=== PATIENT | male | born 1950 | race Caucasian/White ===

== ENCOUNTER 2018-03-20 16:51 | Emergency (ER) | payer OTHER ==
--- NOTE | 2018-03-20 18:22 | RAD REPORT ---
EXAM DESCRIPTION: David Single View03/20/2018 6:16 pm CLINICAL HISTORY: cough COMPARISON: none FINDINGS: The lungs appear clear of acute infiltrate. The heart is normal size IMPRESSION: No acute abnormalities displayed
[2018-03-20 18:43] LABS: Absolute Lymphocytes (CBC) 1.3 K/uL (0.7-4.9); Absolute Monocytes 0.7 K/uL (0.1-1.3); Absolute Neutrophil 4.1 K/uL (1.8-8.0); Eosinophils % 0.9 % (0-4.4); Hematocrit 39.6 % (39.6-49.0); Lymphocytes % 20.3 % (15.3-44.8); MPV 7.7 fL (7.6-11.3); Monocytes % 11.3 % (3.3-12.3); RBC Red Blood Cell Count 4.38 M/uL (4.33-5.43)
[2018-03-20 18:49] LABS: Urine Blood NEGATIVE (NEG); Urine Glucose NEGATIVE (NEG); Urine Protein NEGATIVE (NEG); Urine pH 6.5 (5.0-7.0)
[2018-03-20 19:01] LABS: Protime INR 1.03
[2018-03-20 19:02] LABS: ALT/SGPT 55 U/L (12-78); AST/SGOT 26 U/L (15-37); Albumin 3.8 g/dL (3.4-5.0); Alkaline Phosphatase 139 U/L (45-117); BUN Blood Urea Nitrogen 11 mg/dL (7-18); Bicarbonate 27 mmol/L (21-32); Bilirubin Direct < 0.1 mg/dL (0-0.2); Bilirubin Total 0.2 mg/dL (0.2-1.0); Glucose Level 119 mg/dL (74-106); Magnesium 2.5 mg/dL (1.8-2.4); NT PRO-BNP 19 pg/mL (<125); Potassium 3.8 mmol/L (3.5-5.1); Protein, Total 7.5 g/dL (6.4-8.2); Sodium Level 139 mmol/L (136-145); Troponin (Emerg Dept Use Only) < 0.02 ng/mL (0.0-0.045)
[2018-03-20] MEDS ORDERED: NA CHLORIDE 0.9% 1,000 ML ONE (19:08)
--- NOTE | 2018-03-20 19:50 | RAD REPORT ---
EXAM DESCRIPTION: CT - Chest Abdomen Pelvis W Cont - 03/20/2018 7:33 pm CLINICAL HISTORY: Chest and abdominal pain. Cough COMPARISON: MRI 2007 TECHNIQUE: Computed axial tomography of the chest, abdomen and pelvis was obtained. 100 cc Isovue-30 0 was administered intravenously. Oral contrast was not requested. This limits evaluation of bowel. All CT scans are performed using dose optimization technique as appropriate and may include automated exposure control or mA/KV adjustment according to patient size. FINDINGS: The lungs are clear No mediastinal or hilar lymphadenopathy Pericardial effusion not seen. Pleural effusion is not present Fatty liver. 21 millimeter dense lesion within the right lobe unchanged from the prior exam. Spleen, pancreas, adrenals and kidneys appear unremarkable. Small renal cysts The appendix is normal. No evidence diverticulitis. Right inguinal hernia contains fat No abnormality of the inferior vena cava noted. Tiny umbilical hernia The left ischium and left ilium are sclerotic IMPRESSION: Unremarkable CT chest Fatty liver. 21 millimeter dense lesion within the right lobe is unchanged from the prior exam. It pr obably is benign. Follow up ultrasound in 6 months recommended to reassess stability Left ilium and left ischium are sclerotic which could indicate Paget's disease or blastic metastatic disease
--- NOTE | 2018-03-20 20:16 | RAD REPORT ---
EXAM DESCRIPTION: USExtremity Venous Uni Ltd03/20/2018 7:52 pm CLINICAL HISTORY: Right leg swelling. COMPARISON: None. FINDINGS: Right common femoral, superficial femoral, popliteal and right posterior tibial veins are compressible and demonstrate augmentation. Doppler demonstrates good flow. IMPRESSION: No evidence of deep venous thrombosis involving the right lower extremity.
--- NOTE | 2018-03-20 22:04 | EDPHYS ---
Physician Documentation [facility] Name: Christopher Le Age: 67 yrs Sex: Male : 1950 Arrival Date: 03/20/2018 Time: 16:54 Bed 13 Private MD: Arjun Malik B ED Physician Darshan Lizama HPI: 03/20 19:23 This 67 yrs old Male presents to ER via Ambulatory with complaints of Feet sandhya Swelling. 19:23 The patient presents with decreased range of motion, pain. The complaints affect the sandhya lateral aspect of left calf, left calf, medial aspect of left calf and left berrios. Context: The problem was sustained at an unknown site. Onset: The symptoms/episode began/occurred 3 month(s) ago. Modifying factors: The symptoms are alleviated by nothing. the symptoms are aggravated by nothing. Associated signs and symptoms: The patient has no apparent associated signs or symptoms. Treatment prior to arrival includes: no previous treatment. Severity of symptoms: At their worst the symptoms were mild, in the emergency department the symptoms are unchanged. The patient has not experienced similar symptoms in the past. Historical: - Allergies: 17:36 No Known Allergies; aj - Home Meds: 17:36 gabapentin 600 mg oral tab twice a day [Active]; Restasis 0.05 % ophthalmic dpet 1 drop aj 2 times per day [Active]; ropinirole 2 mg oral tab 1 tab [Active]; cyclobenzaprine 10 mg Oral tab daily [Active]; hydrocodone-acetaminophen 7.5-325 mg Oral tab twice a day [Active]; duloxetine 60 mg oral cpDR 1 cap once daily [Active]; Ambien 10 mg Oral tab 1 tab once daily [Active]; meloxicam 15 mg oral tab 1 tab once daily [Active]; - PMHx: 17:36 Chronic pain; aj - PSHx: 17:36 None; aj - Immunization history:: Adult Immunizations up to date. - Social history:: Smoking status: Patient/guardian denies using tobacco. - Ebola Screening: : Patient negative for fever greater than or equal to 101.5 degrees Fahrenheit, and additional compatible Ebola Virus Disease symptoms Patient denies exposure to infectious person Patient denies travel to an Ebola-affected area in the 21 days before illness onset No symptoms or risks identified at this time. - Family history:: not pertinent. ROS: 19:23 Constitutional: Negative for fever, chills, and weight loss, Eyes: Negative for injury, sandhya pain, redness, and discharge, ENT: Negative for injury, pain, and discharge, Neck: Negative for injury, pain, and swelling, Cardiovascular: Negative for chest pain, palpitations, and edema, Respiratory: Negative for shortness of breath, cough, wheezing, and pleuritic chest pain, Abdomen/GI: Negative for abdominal pain, nausea, vomiting, diarrhea, and constipation, Back: Negative for injury and pain, : Negative for injury, bleeding, discharge, and swelling, Skin: Negative for injury, rash, and discoloration, Neuro: Negative for headache, weakness, numbness, tingling, and seizure, Psych: Negative for depression, anxiety, suicide ideation, homicidal ideation, and hallucinations, Allergy/Immunology: Negative for hives, rash, and allergies, Endocrine: Negative for neck swelling, polydipsia, polyuria, polyphagia, and marked weight changes, Hematologic/Lymphatic: Negative for swollen nodes, abnormal bleeding, and unusual bruising. 19:23 MS/extremity: Positive for swelling, tenderness, of the left leg. Exam: 19:23 Constitutional: This is a well developed, well nourished patient who is awake, alert, sandhya and in no acute distress. Head/Face: Normocephalic, atraumatic. Eyes: Pupils equal round and reactive to light, extra-ocular motions intact. Lids and lashes normal. Conjunctiva and sclera are non-icteric and not injected. Cornea within normal limits. Periorbital areas with no swelling, redness, or edema. ENT: Nares patent. No nasal discharge, no septal abnormalities noted. Tympanic membranes are normal and external auditory canals are clear. Oropharynx with no redness, swelling, or masses, exudates, or evidence of obstruction, uvula midline. Mucous membranes moist. Neck: Trachea midline, no thyromegaly or masses palpated, and no cervical lymphadenopathy. Supple, full range of motion without nuchal rigidity, or vertebral point tenderness. No Meningismus. Chest/axilla: Normal chest wall appearance and motion. Nontender with no deformity. No lesions are appreciated. Cardiovascular: Regular rate and rhythm with a normal S1 and S2. No gallops, murmurs, or rubs. Normal PMI, no JVD. No pulse deficits. Respiratory: Lungs have equal breath sounds bilaterally, clear to auscultation and percussion. No rales, rhonchi or wheezes noted. No increased work of breathing, no retractions or nasal flaring. Abdomen/GI: Soft, non-tender, with normal bowel sounds. No distension or tympany. No guarding or rebound. No evidence of tenderness throughout. Back: No spinal tenderness. No costovertebral tenderness. Full range of motion. Male : Normal genitalia with no discharge or lesions. Skin: Warm, dry with normal turgor. Normal color with no rashes, no lesions, and no evidence of cellulitis. Neuro: Awake and alert, GCS 15, oriented to person, place, time, and situation. Cranial nerves II-XII grossly intact. Motor strength 5/5 in all extremities. Sensory grossly intact. Cerebellar exam normal. Normal gait. Psych: Awake, alert, with orientation to person, place and time. Behavior, mood, and affect are within normal limits. 19:23 Musculoskeletal/extremity: Extremities: swelling, ROM: full active range of motion, full passive range of motion, Circulation is intact in all extremities. Sensation intact. Compartment Syndrome exam of affected extremity: is normal. no pain, no numbness, no tingling, no sensation deficit, no palor, no weak pulses, DVT Exam: no pain, negative Homans' sign noted on exam, no appreciated bluish discoloration, no erythema, no increased warmth, swelling, tenderness. Vital Signs: 17:36 BP 155 / 74; Pulse 92; Resp 20; Temp 97.8; Pulse Ox 96% on R/A; Weight 92.08 kg; Height aj 6 ft. 0 in. (182.88 cm); 18:51 BP 144 / 80; Pulse 70; Resp 18; Pulse Ox 96% on R/A; ph 21:15 BP 154 / 80; Pulse 73; Resp 17; Pulse Ox 100% on R/A; jb4 22:17 BP 151 / 73; Pulse 71; Resp 16; Pulse Ox 98% on R/A; jb4 17:36 Body Mass Index 27.53 (92.08 kg, 182.88 cm) MDM: 17:44 Patient medically screened. [facility] 19:26 Data reviewed: vital signs, nurses notes, lab test result(s), EKG, radiologic studies, [facility] CT scan, plain films, ultrasound. 22:02 Counseling: I had a detailed discussion with the patient and/or guardian regarding: the [facility] historical points, exam findings, and any diagnostic results supporting the discharge/admit diagnosis, lab results, radiology results, the need for outpatient follow up, to return to the emergency department if symptoms worsen or persist or if there are any questions or concerns that arise at home. ED course: CT findings were discussed with the patient along with the need for further evaluation by PCP and possible cause being cancer. Patient and understood and agrees with the plan of care. . 03/20 17:45 Order name: Basic Metabolic Panel; Complete Time: 19: [facility] 03/20 17:45 Order name: CBC with Diff; Complete Time: 19: [facility] 03/20 17:45 Order name: LFT's; Complete Time: 19: [facility] 03/20 17:45 Order name: Magnesium; Complete Time: 19: [facility] 03/20 17:45 Order name: NT PRO-BNP; Complete Time: 19: [facility] 03/20 17:45 Order name: PT-INR; Complete Time: 19: [facility] 03/20 17:45 Order name: Troponin (emerg Dept Use Only); Complete Time: 19: [facility] 03/20 17:45 Order name: XRAY Chest (1 view); Complete Time: 19:27 [facility] 03/20 17:45 Order name: EKG; Complete Time: 17:46 [facility] 03/20 17:45 Order name: Urine Culture [facility] 03/20 18:44 Order name: Urine Dipstick--Ancillary (enter results); Complete Time: 19:27 03/20 18:49 Order name: US Extremity Venous Unilateral Ltd; Complete Time: 20:19 [facility] 03/20 18:49 Order name: CT Chest, Abdomen, Pelvis - W/Contrast; Complete Time: 20:17 [facility] 03/20 17:45 Order name: Cardiac monitoring; Complete Time: 19:14 [facility] 03/20 17:45 Order name: EKG - Nurse/Tech; Complete Time: 19:14 [facility] 03/20 17:45 Order name: IV Saline Lock; Complete Time: 19:14 [facility] 03/20 17:45 Order name: Labs collected and sent; Complete Time: 19:14 [facility] 03/20 17:45 Order name: O2 Per Protocol; Complete Time: 19:14 [facility] 03/20 17:45 Order name: O2 Sat Monitoring; Complete Time: 19:14 [facility] 03/20 17:45 Order name: Urine Dipstick-Ancillary (obtain specimen); Complete Time: 19:13 [facility] Administered Medications: 19:13 Drug: NS 0.9% 1000 ml Route: IV; Rate: 75 ml/hr; Site: right antecubital; jb4 22:20 Follow up: Response: No adverse reaction; IV Status: Completed infusion jb4 Disposition: 03/20/18 22:03 Discharged to Home. Impression: Edema, unspecified. - Condition is Stable. - Discharge Instructions: Edema, Edema, [id number], Peripheral Edema. - Medication Reconciliation Form, Thank You Letter, Antibiotic Education, Prescription Opioid Use form. - Follow up: Arjun Malik; When: 2 - 3 days; Reason: Recheck today's complaints, Continuance of care, Re-evaluation by your physician. - Problem is new. - Symptoms have improved. Addendum: 03/24/2018 11:09 Co-signature as Attending Physician, Darshan Lizama MD I agree with the assessment and c hogue plan of care. Signatures: Dispatcher [employer] EDIrene Weaver, Darshan Chance RN, MD MD cha Mickail, Joel, PA PA jmm Bryson, James, RN RN jb4 Corrections: (The following items were deleted from the chart) 03/20 22:21 22:03 03/20/2018 22:03 Discharged to Home. Impression: Edema, unspecified. Condition is jb4 Stable. Discharge Instructions: Edema, Edema, [id number], Peripheral Edema. Forms are Medication Reconciliation Form, Thank You Letter, Antibiotic Education, Prescription Opioid Use. Follow up: Arjun Malik; When: 2 - 3 days; Reason: Recheck today's complaints, Continuance of care, Re-evaluation by your physician. Problem is new. Symptoms have improved. palak
--- NOTE | 2018-03-20 22:04 | ER ---
Nurse's Notes [facility] Name: Christopher Le Age: 67 yrs Sex: Male : 1950 Arrival Date: 03/20/2018 Time: 16:54 Bed 13 Private MD: Arjun Malik B Diagnosis: Edema, unspecified Presentation: 03/20 17:32 Presenting complaint: Patient states: Sent by Dr Malik for left foot swelling x 1 aj month. Had blood work and venous doppler done today. Transition of care: patient was not received from another setting of care. Onset of symptoms was February 2018. Risk Assessment: Do you want to hurt yourself or someone else? Patient reports no desire to harm self or others. Initial Sepsis Screen: Does the patient meet any 2 criteria? No. Patient's initial sepsis screen is negative. Does the patient have a suspected source of infection? No. Patient's initial sepsis screen is negative. Care prior to arrival: None. 17:32 Method Of Arrival: Ambulatory aj 17:32 Acuity: SARA 3 aj Triage Assessment: 17:36 General: Appears in no apparent distress. comfortable, Behavior is calm, cooperative, aj appropriate for age. Pain: Denies pain. Neuro: Level of Consciousness is awake, alert, obeys commands, Oriented to person, place, time, situation, Appropriate for age. Respiratory: Airway is patent Respiratory effort is even, unlabored, Respiratory pattern is regular, symmetrical. Derm: Skin is intact, is healthy with good turgor, Skin is pink, warm \T\ dry. normal. Musculoskeletal: Reports swelling to left foot. Historical: - Allergies: 17:36 No Known Allergies; aj - Home Meds: 17:36 gabapentin 600 mg oral tab twice a day [Active]; Restasis 0.05 % ophthalmic dpet 1 drop aj 2 times per day [Active]; ropinirole 2 mg oral tab 1 tab [Active]; cyclobenzaprine 10 mg Oral tab daily [Active]; hydrocodone-acetaminophen 7.5-325 mg Oral tab twice a day [Active]; duloxetine 60 mg oral cpDR 1 cap once daily [Active]; Ambien 10 mg Oral tab 1 tab once daily [Active]; meloxicam 15 mg oral tab 1 tab once daily [Active]; - PMHx: 17:36 Chronic pain; aj - PSHx: 17:36 None; aj - Immunization history:: Adult Immunizations up to date. - Social history:: Smoking status: Patient/guardian denies using tobacco. - Ebola Screening: : Patient negative for fever greater than or equal to 101.5 degrees Fahrenheit, and additional compatible Ebola Virus Disease symptoms Patient denies exposure to infectious person Patient denies travel to an Ebola-affected area in the 21 days before illness onset No symptoms or risks identified at this time. - Family history:: not pertinent. Screenin:38 Abuse screen: Denies threats or abuse. Denies injuries from another. Nutritional ph screening: No deficits noted. Tuberculosis screening: No symptoms or risk factors identified. Fall Risk None identified. Assessment: 18:37 General: Appears in no apparent distress. comfortable, slender, well groomed, Behavior ph is calm, cooperative, appropriate for age, Denies fever, feeling ill. Pain: Denies pain. Neuro: Level of Consciousness is awake, alert, obeys commands, Oriented to person, place, time, situation. Cardiovascular: Capillary refill < 3 seconds in bilateral fingers toes Patient's skin is warm and dry. Edema is 2+ to left ankle and left foot. Respiratory: Airway is patent Respiratory effort is even, unlabored, Respiratory pattern is regular, symmetrical, Breath sounds are clear bilaterally. Denies shortness of breath. GI: No signs and/or symptoms were reported involving the gastrointestinal system. Derm: Skin is intact, is healthy with good turgor, Skin is pink, warm \T\ dry. 19:10 Reassessment: Patient appears in no apparent distress at this time. Patient and/or jb4 family updated on plan of care and expected duration. Pain level reassessed. Patient is alert, oriented x 3, equal unlabored respirations, skin warm/dry/pink. Cardiovascular: Patient's skin is warm and dry. 20:20 Reassessment: PT is at CT. jb4 21:00 Reassessment: Patient appears in no apparent distress at this time. Patient and/or jb4 family updated on plan of care and expected duration. Pain level reassessed. Patient is alert, oriented x 3, equal unlabored respirations, skin warm/dry/pink. 22:17 Reassessment: Patient appears in no apparent distress at this time. Patient and/or jb4 family updated on plan of care and expected duration. Pain level reassessed. Patient is alert, oriented x 3, equal unlabored respirations, skin warm/dry/pink. Discussed D/c, F/u with pt and pt's , denies questions or concerns. Vital Signs: 17:36 BP 155 / 74; Pulse 92; Resp 20; Temp 97.8; Pulse Ox 96% on R/A; Weight 92.08 kg; Height aj 6 ft. 0 in. (182.88 cm); 18:51 BP 144 / 80; Pulse 70; Resp 18; Pulse Ox 96% on R/A; ph 21:15 BP 154 / 80; Pulse 73; Resp 17; Pulse Ox 100% on R/A; jb4 22:17 BP 151 / 73; Pulse 71; Resp 16; Pulse Ox 98% on R/A; jb4 17:36 Body Mass Index 27.53 (92.08 kg, 182.88 cm) ED Course: 16:54 Patient arrived in ED. sb2 16:54 Arjun Malik MD is Private Physician. sb2 17:33 Triage completed. aj 17:36 Arm band placed on left wrist. Patient placed in an exam room. aj 17:44 Darshan Lizama MD is Attending Physician. sandhya 17:50 Rocio Roque, BETO is Primary Nurse. ph 18:17 XRAY Chest (1 view) In Process Unspecified. EDMS 18:38 Patient has correct armband on for positive identification. Placed in gown. Bed in low ph position. Call light in reach. Side rails up X 1. Pulse ox on. NIBP on. Door closed. Warm blanket given. 18:38 Inserted saline lock: 20 gauge in left antecubital area, using aseptic technique. Blood ph collected. 18:47 EKG done, by ED staff, reviewed by Darshan Lizama MD. mh5 19:29 Radiology exam delayed due to pt in CT. sg3 19:34 CT Chest, Abdomen, Pelvis - W/Contrast In Process Unspecified. EDMS 19:34 CT completed. Patient tolerated procedure well. Patient moved back from CT. nj 19:37 Guerrero Blake PA is PHCP. jmm 19:45 Ultrasound completed. Patient tolerated well. sg3 19:52 US Extremity Venous Unilateral Ltd In Process Unspecified. EDMS 22:03 Arjun Malik MD is Referral Physician. [facility] 22:17 No provider procedures requiring assistance completed. IV discontinued, intact, jb4 bleeding controlled. Administered Medications: 19:13 Drug: NS 0.9% 1000 ml Route: IV; Rate: 75 ml/hr; Site: right antecubital; jb4 22:20 Follow up: Response: No adverse reaction; IV Status: Completed infusion jb4 Outcome: 22:03 Discharge ordered by MD. [facility] 22:17 Discharged to home ambulatory, with significant other. jb4 22:17 Condition: stable 22:17 Discharge instructions given to patient, significant other, Instructed on discharge instructions, follow up and referral plans. Demonstrated understanding of instructions, follow-up care. 22:21 Patient left the ED. jb4 Signatures: Dispatcher [employer] EDIrene Weaver, RN RN Darshan Bird MD MD cha Mickail, Joel, PA PA jmm Hall, Patricia, RN RN Joe Clark RN RN jb4 Gilberto Pillai Maria Tila Child 3 Rona Kline sb2 Corrections: (The following items were deleted from the chart) 20: 16:12 Reassessment: Patient appears in no apparent distress at this time. Patient jb4 and/or family updated on plan of care and expected duration. Pain level reassessed. Patient is alert, oriented x 3, equal unlabored respirations, skin warm/dry/pink. jb4 : 16:12 Cardiovascular: Patient's skin is warm and dry. jb4 jb4 : 16:12 Respiratory: Airway is patent Respiratory effort is even, unlabored, Respiratory jb4 pattern is regular, symmetrical, jb4
--- NOTE | 2018-03-21 08:29 | EKG ---
Test Date: 2018-03-20 Test Time: 18:40:21 Slag Wheeler: EMBER MEASUREMENT RESULTS: Intervals: Rate: 68 PA: 138 QRSD: 108 QT: 390 QTc: 414 Uledi: P: 59 PA: 138 QRS: 24 T: 50 INTERPRETIVE STATEMENTS: Normal sinus rhythm Normal ECG Compared to ECG 07/05/2015 13:37:12 Sinus bradycardia no longer present Intraventricular conduction delay no longer present Electronically Signed On 03-21-18 08:28:46 TINSEL MACHINE OPERATOR by Rey Nagy
== END 2018-03-20 22:21 | disposition home or self-care (01) ==
LOC: ER 16:51
DX: R60.9 Edema, unspecified (principal)
CPT/HCPCS: 36415; 71045; 71260; 74177; 80048; 80076; 81003; 83735; 83880; 84484; 85025; 85610; 87088; 93005; 93971; 96360; 96361; 99284; J7030; Q9967; 87086

== ENCOUNTER 2021-07-21 15:59 | Inpatient (IN) | payer OTHER ==
--- OUTSIDE RECORDS SUMMARY | 2021-07-21 16:02 | XMS REPORT | Continuity of Care Document ---
:1950 Author Organization [facility] t Address [address] [place] [address] Care Team Providers Name Role Phone Margy ESTRADA Attending Clinician Unavailable Margy ESTRADA Attending Clinician Unavailable Doctor Unassigned, Name Attending Clinician Unavailable Margy Estrada MD Attending Clinician Madelyn Malik Attending Clinician Payers Payer Name Policy Type Policy Number Effective Date Expiration Date S ource Problems Condition Condition Condition Status Onset Resolution Last Treating Co mments Source Name Details Category Date Date Treatment Clinician Date No known No known Disease Unive rs active active ity of problems problems [facility] Allergies, Adverse Reactions, Alerts Allergy Allergy Status Severity Reaction(s) Onset Inactive Treating Comm ents Source Name Type Date Date Clinician NO KNOWN Drug Active Univers ALLERGIE Class ity of S [facility] Social History Social Habit Start Date Stop Date Quantity Comments Source Exposure to Not sure [facility] SARS-CoV-2 (event) Medica l Branch Tobacco use and 2018-11-04 2018-11-04 Never used [facility] exposure 00:00:00 00:00:00 [facility] [birth year] [facility] 00:00:00 00:00:00 [facility] Smoking Status Start Date Stop Date Source Never smoker [facility] Medications Ordered Filled Start Stop Current Ordering Indication Dosage Frequency Signature Comments Components Source Medication Medication Date Date Medication? Clinician (SIG) Name Name GRACE Yes Univers 0.2-0.5 % 7-17 ity of ophthalmic 00:00: [place] drops 00 [facility] TRAVATAN Z Yes Univers 0.004 % 7-17 ity of ophthalmic 00:00: [place] drops 00 [facility] COMBIGAN Yes Univers 0.2-0.5 % 7-17 ity of ophthalmic 00:00: [place] drops 00 Medical Branch TRAVATAN Z 2019-0 Yes Univers 0.004 % 7-17 ity of ophthalmic 00:00: [place] drops 00 [facility] Branch COMBIGAN 2019-0 Yes Univers 0.2-0.5 % 7-17 ity of ophthalmic 00:00: [place] drops 00 [facility] Branch TRAVATAN Z 2019-0 Yes Univers 0.004 % 7-17 ity of ophthalmic 00:00: [place] drops 00 Medical Branch COMBIGAN 2019-0 Yes Univers 0.2-0.5 % 7-17 ity of ophthalmic 00:00: [place] drops 00 [facility] Branch TRAVATAN Z 2019-0 Yes Univers 0.004 % 7-17 ity of ophthalmic 00:00: [place] drops 00 Medical Branch COMBSANTIAGO 2019-0 Yes Univers 0.2-0.5 % 7-17 ity of ophthalmic 00:00: [place] drops 00 Medical Branch TRAVATAN Z 2019-0 Yes Univers 0.004 % 7-17 ity of ophthalmic 00:00: [place] drops 00 [facility] COMBSANTIAGO 2019-0 Yes Univers 0.2-0.5 % 7-17 ity of ophthalmic 00:00: [place] drops 00 Medical Branch TRAVATAN Z 2019-0 Yes Univers 0.004 % 7-17 ity of ophthalmic 00:00: [place] drops 00 [facility] Branch COMBSANTIAGO 2019-0 Yes Univers 0.2-0.5 % 7-17 ity of ophthalmic 00:00: [place] drops 00 Medical Branch TRAVATAN Z 2019-0 Yes Univers 0.004 % 7-17 ity of ophthalmic 00:00: [place] drops 00 [facility] COMBIGAN 2019-0 Yes Univers 0.2-0.5 % 7-17 ity of ophthalmic 00:00: [place] drops 00 Medical Branch TRAVATAN Z 2019-0 Yes Univers 0.004 % 7-17 ity of ophthalmic 00:00: [place] drops 00 [facility] Branch COMBIGAN 2019-0 Yes Univers 0.2-0.5 % 7-17 ity of ophthalmic 00:00: [place] drops 00 Medical Branch TRAVATAN Z 2019-0 Yes Univers 0.004 % 7-17 ity of ophthalmic 00:00: [place] drops 00 [facility] Branch COMBIGAN 2019-0 Yes Univers 0.2-0.5 % 7-17 ity of ophthalmic 00:00: [place] drops 00 [facility] Branch TRAVATAN Z 2019-0 Yes Univers 0.004 % 7-17 ity of ophthalmic 00:00: [place] drops 00 Medical Branch COMBIGAN 2019-0 Yes Univers 0.2-0.5 % 7-17 ity of ophthalmic 00:00: [place] drops 00 Medical Branch TRAVATAN Z 2019-0 Yes Univers 0.004 % 7-17 ity of ophthalmic 00:00: [place] drops [facility] ezetimibe 2017-0 Yes 10mg Take 10 mg Un anne 10 mg 8-29 by mouth ity of tablet 15:52: daily. [address] ezetimibe 0 Yes 10mg Take 10 mg Un anne 10 mg 8-29 by mouth ity of tablet 15:52: daily. [address] ezetimibe 0 Yes 10mg Take 10 mg Un anne 10 mg 8-29 by mouth ity of tablet 15:52: daily. [address] ezetimibe 0 Yes 10mg Take 10 mg Un anne 10 mg 8-29 by mouth ity of tablet 15:52: daily. [address] ezetimibe 0 Yes 10mg Take 10 mg Un anne 10 mg 8-29 by mouth ity of tablet 15:52: daily. [address] ezetimibe 0 Yes 10mg Take 10 mg Un anne 10 mg 8-29 by mouth ity of tablet 15:52: daily. [address] ezetimibe 0 Yes 10mg Take 10 mg Un anne 10 mg 8-29 by mouth ity of tablet 15:52: daily. [address] ezetimibe 2017-0 Yes 10mg Take 10 mg Un anne 10 mg 8-29 by mouth ity of tablet 15:52: daily. [address] ezetimibe 0 Yes 10mg Take 10 mg Un anne 10 mg 8-29 by mouth ity of tablet 15:52: daily. [address] ezetimibe 2017-0 Yes 10mg Take 10 mg Un anne 10 mg 8-29 by mouth ity of tablet 15:52: daily. [address] ezetimibe 2017-0 Yes 10mg Take 10 mg Un anne 10 mg 8-29 by mouth ity of tablet 15:52: daily. [address] rosuvastati 2017-0 Yes 5mg Take 5 mg U nivers n 5 mg 8-20 by mouth ity of tablet 00:00: daily. [place] [facility] rosuvastati 2018-0 Yes 5mg Take 5 mg U nivers n 5 mg 8-20 by mouth ity of tablet 00:00: daily. [place] [facility] rosuvastati 2018-0 Yes 5mg Take 5 mg U nivers n 5 mg 8-20 by mouth ity of tablet 00:00: daily. [place] [facility] rosuvastati 2018-0 Yes 5mg Take 5 mg U nivers n 5 mg 8-20 by mouth ity of tablet 00:00: daily. [place] [facility] rosuvastati 2018-0 Yes 5mg Take 5 mg U nivers n 5 mg 8-20 by mouth ity of tablet 00:00: daily. [place] [facility] rosuvastati 2018-0 Yes 5mg Take 5 mg U nivers n 5 mg 8-20 by mouth ity of tablet 00:00: daily. [place] [facility] rosuvastati 2018-0 Yes 5mg Take 5 mg U nivers n 5 mg 8-20 by mouth ity of tablet 00:00: daily. [place] [facility] rosuvastati 2018-0 Yes 5mg Take 5 mg U nivers n 5 mg 8-20 by mouth ity of tablet 00:00: daily. [place] [facility] rosuvastati 2018-0 Yes 5mg Take 5 mg U nivers n 5 mg 8-20 by mouth ity of tablet 00:00: daily. [place] [facility] rosuvastati 2018-0 Yes 5mg Take 5 mg U nivers n 5 mg 8-20 by mouth ity of tablet 00:00: daily. [place] [facility] rosuvastati 2018-0 Yes 5mg Take 5 mg U nivers n 5 mg 8-20 by mouth ity of tablet 00:00: daily. [address] gabapentin 2017-1 Yes Univers 600 mg 1-13 ity of tablet 00:00: [place] [facility] gabapentin 2017-1 Yes Univers 600 mg 1-13 ity of tablet 00:00: [address] gabapentin 2017-1 Yes Univers 600 mg 1-13 ity of tablet 00:00: [address] gabapentin 2017-1 Yes Univers 600 mg 1-13 ity of tablet 00:00: [address] gabapentin 2017-1 Yes Univers 600 mg 1-13 ity of tablet 00:00: [place] [facility] gabapentin 2017- Yes Univers 600 mg 1-13 ity of tablet 00:00: [address] Branch gabapentin 2017- Yes Univers 600 mg 1-13 ity of tablet 00:00: [address] Branch gabapentin 2017- Yes Univers 600 mg 1-13 ity of tablet 00:00: [address] Branch gabapentin 2017- Yes Univers 600 mg 1-13 ity of tablet 00:00: [address] gabapentin 2017- Yes Univers 600 mg 1-13 ity of tablet 00:00: [address] gabapentin 2017- Yes Univers 600 mg 1-13 ity of tablet 00:00: [address] DULoxetine 2017- Yes Univers 60 mg 1-06 ity of capsule 00:00: [address] DULoxetine 2017- Yes Univers 60 mg 1-06 ity of capsule 00:00: [address] DULoxetine 2017- Yes Univers 60 mg 1-06 ity of capsule 00:00: [address] DULoxetine 2017- Yes Univers 60 mg 1-06 ity of capsule 00:00: [address] DULoxetine 2017- Yes Univers 60 mg 1-06 ity of capsule 00:00: [address] DULoxetine 2017- Yes Univers 60 mg 1-06 ity of capsule 00:00: [address] DULoxetine 2017- Yes Univers 60 mg 1-06 ity of capsule 00:00: [address] DULoxetine 2017- Yes Univers 60 mg 1-06 ity of capsule 00:00: [address] DULoxetine 2017- Yes Univers 60 mg 1-06 ity of capsule 00:00: [address] DULoxetine 2017- Yes Univers 60 mg 1-06 ity of capsule 00:00: [address] DULoxetine 2017- Yes Univers 60 mg 1-06 ity of capsule 00:00: [place] [facility] RESTASIS 2017- Yes Univers 0.05 % 1-05 ity of ophthalmic 00:00: [place] [facility] RESTASIS 2017- Yes Univers 0.05 % 1-05 ity of ophthalmic 00:00: [place] drops Medical Branch RESTASIS 2017- Yes Univers 0.05 % 1-05 ity of ophthalmic 00:00: [place] drops 00 Medical Branch RESTASIS 2017- Yes Univers 0.05 % 1-05 ity of ophthalmic 00:00: [place] drops 00 Medical Branch RESTASIS 2017- Yes Univers 0.05 % 1-05 ity of ophthalmic 00:00: [place] drops 00 Medical Branch RESTASIS 2017- Yes Univers 0.05 % 1-05 ity of ophthalmic 00:00: [place] drops 00 Medical Branch RESTASIS 2017- Yes Univers 0.05 % 1-05 ity of ophthalmic 00:00: [place] drops 00 Medical Branch RESTASIS 2017- Yes Univers 0.05 % 1-05 ity of ophthalmic 00:00: [place] drops 00 Medical Branch RESTASIS 2017- Yes Univers 0.05 % 1-05 ity of ophthalmic 00:00: [place] drops 00 Medical Branch RESTASIS 2017- Yes Univers 0.05 % 1-05 ity of ophthalmic 00:00: [place] drops 00 Medical Branch RESTASIS 2017- Yes Univers 0.05 % 1-05 ity of ophthalmic 00:00: [place] drops 00 Medical Branch ALPHAGAN P 2017- Yes Univers 0.1 % 0-25 ity of ophthalmic 00:00: [place] drops 00 Medical Branch ALPHAGAN P 2017- Yes Univers 0.1 % 0-25 ity of ophthalmic 00:00: [place] drops 00 Medical Branch ALPHAGAN P 2017- Yes Univers 0.1 % 0-25 ity of ophthalmic 00:00: [place] drops 00 Medical Branch ALPHAGAN P 2016- Yes Univers 0.1 % 0-25 ity of ophthalmic 00:00: [place] drops 00 Medical Branch ALPHAGAN P 2017- Yes Univers 0.1 % 0-25 ity of ophthalmic 00:00: [place] drops 00 Medical Branch ALPHAGAN P 2017- Yes Univers 0.1 % 0-25 ity of ophthalmic 00:00: [place] drops 00 Medical Branch ALPHAGAN P 2016- Yes Univers 0.1 % 0-25 ity of ophthalmic 00:00: [place] drops 00 Medical Branch ALPHAGAN P 2016- Yes Univers 0.1 % 0-25 ity of ophthalmic 00:00: [place] drops 00 Medical Branch ALPHAGAN P 2016- Yes Univers 0.1 % 0-25 ity of ophthalmic 00:00: [place] drops 00 Medical Branch ALPHAGAN P 2016- Yes Univers 0.1 % 0-25 ity of ophthalmic 00:00: [place] drops 00 Medical Branch ALPHAGAN P 2016-03 Yes Univers 0.1 % 0-25 ity of ophthalmic 00:00: [place] drops Medical Branch rOPINIRole 2016-03 Yes Univers 2 mg tablet 0-22 ity of 00:00: [place] [facility] rOPINIRole 2016-03 Yes Univers 2 mg tablet 0-22 ity of 00:00: [place] [facility] rOPINIRole 2016-03 Yes Univers 2 mg tablet 0-22 ity of 00:00: Medical Branch rOPINIRole 2016-03 Yes Univers 2 mg tablet 0-22 ity of 00:00: [place] [facility] rOPINIRole 2016-03 Yes Univers 2 mg tablet 0-22 ity of 00:00: [place] [facility] rOPINIRole 2016-03 Yes Univers 2 mg tablet 0-22 ity of 00:00: [place] [facility] rOPINIRole 2016-03 Yes Univers 2 mg tablet 0-22 ity of 00:00: [place] [facility] rOPINIRole 2016-03 Yes Univers 2 mg tablet 0-22 ity of 00:00: [place] [facility] rOPINIRole 2016-03 Yes Univers 2 mg tablet 0-22 ity of 00:00: [place] [facility] rOPINIRole 2016-03 Yes Univers 2 mg tablet 0-22 ity of 00:00: [place] [facility] rOPINIRole 2016-03 Yes Univers 2 mg tablet 0-22 ity of 00:00: [place] [facility] HYDROcodone 2016-03 Yes TAKE 1 Univ ers -acetaminop 0-18 TABLET BY ity of hen 10-325 00:00: MOUTH [place] mg tablet 00 TWICE A Medical DAY Branch zolpidem 10 2016-03 Yes Univer s mg tablet 0-18 ity of 00:00: [place] [facility] HYDROcodone 2016-03 Yes TAKE 1 Univ ers -acetaminop 0-18 TABLET BY ity of hen 10-325 00:00: MOUTH [place] mg tablet 00 TWICE A Medical DAY Branch zolpidem 10 2016-03 Yes Univer s mg tablet 0-18 ity of 00:00: [place] [facility] HYDROcodone 2016-03 Yes TAKE 1 Univ ers -acetaminop 0-18 TABLET BY ity of hen 10-325 00:00: MOUTH [place] mg tablet 00 TWICE A Medical DAY Branch HYDROcodone 2016-03 Yes TAKE 1 Univ ers -acetaminop 0-18 TABLET BY ity of hen 10-325 00:00: MOUTH [place] mg tablet 00 TWICE A Medical DAY Branch zolpidem 10 2016-03 Yes Univer s mg tablet 0-18 ity of 00:00: [place] 00 Medical Branch HYDROcodone 2016-03 Yes TAKE 1 Univ ers -acetaminop 0-18 TABLET BY ity of hen 10-325 00:00: MOUTH [place] mg tablet 00 TWICE A Medical DAY Branch zolpidem 10 2016-03 Yes Univer s mg tablet 0-18 ity of 00:00: [place] 00 Medical Branch HYDROcodone 2016-03 Yes TAKE 1 Univ ers -acetaminop 0-18 TABLET BY ity of hen 10-325 00:00: MOUTH [place] mg tablet 00 TWICE A Medical DAY Branch zolpidem 10 2016-03 Yes Univer s mg tablet 0-18 ity of 00:00: [place] 00 Medical Branch zolpidem 10 2016-03 Yes Univer s mg tablet 0-18 ity of 00:00: [place] 00 Medical Branch HYDROcodone 2016-03 Yes TAKE 1 Univ ers -acetaminop 0-18 TABLET BY ity of hen 10-325 00:00: MOUTH [place] mg tablet 00 TWICE A Medical DAY Branch zolpidem 10 2016-03 Yes Univer s mg tablet 0-18 ity of 00:00: [place] 00 Medical Branch HYDROcodone 2016-03 Yes TAKE 1 Univ ers -acetaminop 0-18 TABLET BY ity of hen 10-325 00:00: MOUTH [place] mg tablet 00 TWICE A Medical DAY Branch zolpidem 10 2016-03 Yes Univer s mg tablet 0-18 ity of 00:00: [place] 00 Medical Branch HYDROcodone 2016-03 Yes TAKE 1 Univ ers -acetaminop 0-18 TABLET BY ity of hen 10-325 00:00: MOUTH [place] mg tablet 00 TWICE A Medical DAY Branch zolpidem 10 2016-03 Yes Univer s mg tablet 0-18 ity of 00:00: [place] 00 Medical Branch HYDROcodone 2016-03 Yes TAKE 1 Univ ers -acetaminop 0-18 TABLET BY ity of hen 10-325 00:00: MOUTH [place] mg tablet 00 TWICE A Medical DAY Branch zolpidem 10 2016-03 Yes Univer s mg tablet 0-18 ity of 00:00: [place] 00 Medical Branch HYDROcodone 2016-03 Yes TAKE 1 Univ ers -acetaminop 0-18 TABLET BY ity of hen 10-325 00:00: MOUTH [place] mg tablet 00 TWICE A Medical DAY Branch zolpidem 10 2016-1 Yes Univer s mg tablet 0-18 ity of 00:00: [place] [facility] cyclobenzap 2017-0 Yes Univer s rine 10 mg 9-14 ity of tablet 00:00: [place] [facility] cyclobenzap 2017-0 Yes Univer s rine 10 mg 9-14 ity of tablet 00:00: [place] [facility] cyclobenzap 2017-0 Yes Univer s rine 10 mg 9-14 ity of tablet 00:00: [place] [facility] cyclobenzap 2017-0 Yes Univer s rine 10 mg 9-14 ity of tablet 00:00: [place] [facility] cyclobenzap 2017-0 Yes Univer s rine 10 mg 9-14 ity of tablet 00:00: [place] [facility] cyclobenzap 2017-0 Yes Univer s rine 10 mg 9-14 ity of tablet 00:00: [place] [facility] cyclobenzap 2017-0 Yes Univer s rine 10 mg 9-14 ity of tablet 00:00: [place] [facility] cyclobenzap 2017-0 Yes Univer s rine 10 mg 9-14 ity of tablet 00:00: [place] [facility] cyclobenzap 2017-0 Yes Univer s rine 10 mg 9-14 ity of tablet 00:00: [place] [facility] cyclobenzap 2017-0 Yes Univer s rine 10 mg 9-14 ity of tablet 00:00: [place] [facility] cyclobenzap 2017-0 Yes Univer s rine 10 mg 9-14 ity of tablet 00:00: [place] [address] Medical Branch Vital Signs Vital Name Observation Time Observation Value Comments Source Systolic blood 2020-09-06 18:56:00 159 mm[Hg] Univer sity of pressure [facility] Diastolic blood 2020-09-06 18:56:00 77 mm[Hg] Unive rsity of pressure [facility] Heart rate 2020-09-06 18:56:00 81 /min [facility] Body temperature 2020-09-06 18:56:00 36.33 Meme Univ ersity of [facility] Respiratory rate 2020-09-06 18:56:00 18 /min Univ ersity of [facility] Body height 2020-09-06 18:56:00 180.3 cm Universi ty [facility] [place] [facility] [place] Body weight 2020-09-06 18:56:00 88.542 kg Universi ty of [facility] BMI 2020-09-06 18:56:00 27.22 kg/m2 Universi ty [facility] Systolic blood 2018-11-04 15:11:00 122 mm[Hg] Univer sity of pressure [facility] Diastolic blood 2018-11-04 15:11:00 68 mm[Hg] Unive rsity of pressure [facility] Heart rate 2018-11-04 15:11:00 79 /min Universi ty [facility] Respiratory rate 2018-11-04 15:11:00 19 /min [facility] height 2018-11-04 15:11:00 182.9 cm Universi ty [facility] Body weight 2018-11-04 15:11:00 87.227 kg Universi ty [facility] BMI 2018-11-04 15:11:00 26.08 kg/m2 Universi ty [facility] Oxygen saturation in 2018-11-04 15:11:00 97 /min [facility] Arterial blood by [facility] Pulse oximetry Branch Procedures Procedure Date / Time Performing Clinician Source Performed DME/SUPPLY JUSTIFICATION 2020-11-02 05:01:00 Doctor Unassigned, No [facility] CONSENT/REFUSAL FOR 2020-09-06 18:46:22 Doctor Unassigned, No [facility] DIAGNOSIS AND TREATMENT [facility] ASSIGNMENT OF BENEFITS 2020-09-06 18:46:06 Doctor Unassigned, No [facility] EXTERNAL PROVIDER - ADC 2020-06-13 05:01:00 Doctor Unassigned, N o [facility] REFERRAL [facility] DME/SUPPLY JUSTIFICATION 2019-08-04 05:01:00 Doctor Unassigned, No [facility] DME/SUPPLY JUSTIFICATION 2018-11-04 05:01:00 Doctor Unassigned, No [facility] Encounters Start End Encounter Admission Attending Care Care Encounter Source Date/Time Date/Time Type Type Clinicians Facility Department ID 2021-09-12 2021-09-12 Outpatient R GISSEL ESTRADA [facility] [id number] Univers 10:30:00 10:30:00 GISSEL ESTRADA [id number] ity of [facility] 2020-11-02 2020-11-02 Orders Doctor EARL [id number] Univers 00:00:00 00:00:00 Only Unassigned, MYRIAM [id number] ity of [place] [facility] [id number] Brian as [phone] [address] 2020-09-06 2020-09-06 [facility] [id number] Univers 13:45:55 14:15:55 Visit Gissel Parks [id number] [place]y [id number] [phone] [place] dic[address] 2020-09-06 2020-09-06 Outpatient R GISSEL ESTRADA [facility] [id number] Univers 13:30:00 13:30:00 GISSEL ESTRADA [id number] ity of [facility] 2020-09-06 2020-09-06 Outpatient R GISSEL ESTRADA [facility] [id number] Univers 13:30:00 13:30:00 GISSEL ESTRADA ity of [facility] 2020-09-06 2020-09-06 Orders Doctor EARL [id number] Univers 00:00:00 00:00:00 Only UnassignedMYRIAM [id number] ity of [place] [facility] [id number] Brian as [phone] [facility] 009 Branch 2020-07-25 2020-07-25 Letter EARL Malik [id number] Univers 00:00:00 00:00:00 (Out) Arjun MIGUEL [id number] i ty of HOSPITAL [id number] Brian as [id number] [facility] 043 Branch 2020-06-13 2020-06-13 Orders Doctor EARL [id number] Univers 00:00:00 00:00:00 Only Unassigned, MYRIAM [id number] ity of [place] [facility] [id number] Brian as [phone] [address] 2019-11-17 2019-11-17 Outpatient R NATALIEABDOULBRIGETTE [facility] [id number] Univers 09:00:00 09:00:00 GISSEL ESTRADA 2007 ity [facility] 2019-11-17 2019-11-17 Outpatient R ABDOUL ESTRADAOKMichael [facility] [id number] Univers 09:00:00 09:00:00 ABDOUL ESTRADAOKMichael ity [facility] 2019-11-10 2019-11-10 Outpatient R ABDOUL ESTRADAOKMichael [facility] [id number] Univers 10:00:00 10:00:00 NATALIE ABDOULOKMichael itgee [facility] 2019-08-04 2019-08-04 Orders Doctor EARL [id number] Univers 00:00:00 00:00:00 Only Unassigned, MYRIAM [id number] ity of [place] [facility] [id number] Brian as [phone] [address] 2018-11-04 2018-11-04 Office Natalie [facility] [id number] [facility] 10:02:36 10:26:50 Visit Gissel Parks [id number] [id number] [phone] [place] dical [address] 2018-11-04 2018-11-04 Orders Doctor EARL [id number] Univers 00:00:00 00:00:00 Only Unassigned, MYRIAM [id number] ity of [place] [facility] [id number] Brian as [phone] [address] Results This patient has no known results.
[2021-07-21] MEDS ORDERED: ACETAMINOPHEN 500 MG TAB ONE (16:49)
[2021-07-21] MEDS ORDERED: VANCOMYCIN 1 GM/VIAL ONE (16:49)
[2021-07-21] MEDS ORDERED: NA CHLORIDE 0.9% 500 ML ONE (16:50)
[2021-07-21] MEDS ORDERED: CEFEPIME 1 GM/VIAL ONE (16:50)
[2021-07-21] MEDS ORDERED: NA CHLORIDE 0.9% 100 ML IV ONE (16:50)
[2021-07-21] MEDS ORDERED: NA CHLORIDE 0.9% 2,000 ML ONE (16:50)
[2021-07-21] MEDS ORDERED: NA CHLORIDE 0.9% 250 ML ONE (16:50)
[2021-07-21 16:51] LABS: Absolute Lymphocytes (CBC) 0.6 K/uL (0.7-4.9); Hematocrit 34.2 % (39.6-49.0); Lymphocytes % 4.4 % (15.3-44.8); MPV 7.5 fL (7.6-11.3); RBC Red Blood Cell Count 3.85 M/uL (4.33-5.43)
[2021-07-21 16:55] LABS: Protime INR 1.09
--- NOTE | 2021-07-21 17:07 | RAD REPORT ---
EXAM DESCRIPTION: CT - Head Brain Wo Cont - 07/21/2021 4:52 pm CLINICAL HISTORY: Mental status change, unknown cause COMPARISON: No comparisons TECHNIQUE: Axial 5 mm thick images of the head were obtained without IV contrast. All CT scans are performed using dose optimization technique as appropriate and may include automated exposure control or mA/KV adjustment according to patient size. FINDINGS: No intracranial hemorrhage, mass, edema or shift of mid-line structures. No cortical based acute infarction. No cortical edema or sulcal effacement. No abnormal extra-axial fluid collections. Ventricles are normal. No significant atrophy or chronic ischemic change identifiable. Mastoid air cells and visualized portions of the paranasal sinuses are clear. No acute bony findings. IMPRESSION: Negative non-contrast CT head examination for acute or significant finding.
[2021-07-21 17:12] LABS: ALT/SGPT 43 U/L (12-78); AST/SGOT 26 U/L (15-37); Albumin 3.8 g/dL (3.4-5.0); Alkaline Phosphatase 156 U/L (45-117); BUN Blood Urea Nitrogen 13 mg/dL (7-18); Bicarbonate 27 mmol/L (21-32); Bilirubin Direct 0.1 mg/dL (0-0.2); Bilirubin Total 0.3 mg/dL (0.2-1.0); Glucose Level 112 mg/dL (74-106); Magnesium 1.9 mg/dL (1.8-2.4); NT PRO-BNP 54 pg/mL (<125); Potassium 3.9 mmol/L (3.5-5.1); Protein, Total 7.7 g/dL (6.4-8.2); Sodium Level 137 mmol/L (136-145); Troponin High Sensitivity 4.8 pg/mL (<58.9)
[2021-07-21 17:28] LABS: Blood Morphology Comment NOT SEEN (NOT SEEN); Platelet Estimate INCR; White Blood Cell Scan OK (OK)
[2021-07-21 17:39] LABS: SARS-COV-2 RT PCR NEGATIVE (NEGATIVE)
--- NOTE | 2021-07-21 17:39 | RAD REPORT ---
EXAM DESCRIPTION: US - Extrem Venous W Compress Olvin - 07/21/2021 5:32 pm CLINICAL HISTORY: SWELLING COMPARISON: None. TECHNIQUE: Real-time sonographic evaluation of the bilateral lower extremity common femoral, superfi cial femoral, popliteal and posterior tibial veins was performed. FINDINGS: Normal compressibility, flow augmentation, phasic flow and spontaneous flow are identified in the left and right lower extremity common femoral, superficial femoral, popliteal and posterior t ibial veins. No intraluminal filling defects seen. IMPRESSION: No DVT in either lower extremity.
--- NOTE | 2021-07-21 17:40 | RAD REPORT ---
EXAM DESCRIPTION: RAD - Chest Single View - 07/21/2021 5:22 pm CLINICAL HISTORY: FEVER COMPARISON: Two view chest June 2020 TECHNIQUE: AP portable chest image was obtained 07/21/2021 5:22 pm . FINDINGS: No focal mass consolidation. Interstitial markings are prominent but not felt be substanti ally different when adjusting for differences in positioning and technique. No significant failure or volume overload suspected. Heart and vasculature are normal. No measurable pleural effusion and no pneumothorax. No acute bony abnormality seen. No acute aortic findings suspected. IMPRESSION: No acute cardiopulmonary process.
[2021-07-21 17:54] LABS: Urine Blood 2+ (Negative); Urine Glucose Negative (Negative); Urine Protein Negative (Negative); Urine Specific Gravity 1.015 (1.005-1.030)
[2021-07-21 18:11] LABS: Urine Bacteria <20 /HPF (NONE SEEN)
--- NOTE | 2021-07-21 18:20 | EDPHYS ---
Physician Documentation [facility] Name: Christopher Le Age: 70 yrs Sex: Male : 1950 Arrival Date: 07/21/2021 Time: 15:59 Bed 8 Private MD: Arjun Malik B ED Physician David Weaver HPI: 07/21 16:35 This 70 yrs old Male presents to ER via Ambulatory with complaints of Fever, Altered cp Mental Status. 16:35 The patient reports fever, with an emergency department temperature of 101 degrees cp Fahrenheit. 16:35 The patient presents with confusion. cp 16:35 Onset: The symptoms/episode began/occurred today, patient's last normal was yesterday, cp seemed to appear confused upon awakening this morning but noticeable confusion this afternoon. Possible causes: unknown. Associated signs and symptoms: Pertinent positives: fever, Pertinent negatives: abdominal pain, chest pain, combativeness, diarrhea, headache, vomiting, weakness. Current symptoms: In the emergency department the patient's symptoms are unchanged from the initial presentation, despite home interventions. Historical: - Allergies: 16:09 No Known Allergies; ab2 - Home Meds: 16:24 ezetimibe 10 mg oral tab 1 tab once daily [Active]; buprenorphine-naloxone 8-2 mg jl7 sublingual film 1 film BID [Active]; ropinirole 2 mg Oral tab 1 tab [Active]; rosuvastatin 5 mg oral cpSP [Active]; gabapentin 600 mg Oral tab twice a day [Active]; duloxetine 60 mg Oral cpDR 1 cap once daily [Active]; olmesartan 40 mg oral tab 1 tab once daily [Active]; - PMHx: 16:09 Chronic pain; Hypertensive disorder; ab2 - Immunization history:: Adult Immunizations up to date. - Social history:: Smoking status: Patient denies any tobacco usage or history of. ROS: 16:40 Constitutional: Positive for fever, Negative for poor PO intake. cp 16:40 Respiratory: Negative for cough, shortness of breath, wheezing. cp 16:40 Eyes: Negative for injury, pain, redness, and discharge. cp 16:40 ENT: Negative for drainage from ear(s), ear pain, sore throat, difficulty swallowing, difficulty handling secretions. 16:40 Cardiovascular: Negative for chest pain, edema, palpitations. 16:40 Abdomen/GI: Negative for abdominal pain, nausea, vomiting, and diarrhea. 16:40 Skin: Negative for rash. 16:40 Neuro: Positive for altered mental status, Negative for dizziness, headache, weakness. 16:40 Back: Negative for pain at rest, pain with movement. cp 16:40 : Negative for urinary symptoms. 16:40 All other systems are negative. Exam: 16:45 Constitutional: The patient appears in no acute distress, alert, awake, cp non-diaphoretic, non-toxic, well developed, well nourished. 16:45 Head/Face: Normocephalic, atraumatic. cp 16:45 Eyes: Periorbital structures: appear normal, Pupils: equal, round, and reactive to cp light and accomodation, Extraocular movements: intact throughout, Conjunctiva: normal, no exudate, no injection, Sclera: no appreciated abnormality, Lids and lashes: appear normal, bilaterally. 16:45 ENT: External ear(s): are unremarkable, Ear canal(s): are normal, clear, TM's: dullness, bilaterally, Nose: is normal, Mouth: Lips: moist, Oral mucosa: pink and intact, moist, Posterior pharynx: Airway: no evidence of obstruction, patent, Tonsils: no enlargement, no erythema, no exudate, swelling, is not appreciated, erythema, is not appreciated, exudate, is not appreciated. 16:45 Neck: ROM/movement: is normal, is supple, without pain, no range of motions cp limitations, no meningismus, Lymph nodes: no appreciated lymphadenopathy. 16:45 Chest/axilla: Inspection: normal, Palpation: is normal, no crepitus, no tenderness. 16:45 Cardiovascular: Rate: normal, Rhythm: regular, Edema: is not appreciated, JVD: is not appreciated. 16:45 Respiratory: the patient does not display signs of respiratory distress, Respirations: normal, no use of accessory muscles, no retractions, labored breathing, is not present, Breath sounds: are clear throughout, no decreased breath sounds, no stridor, no wheezing. 16:45 Abdomen/GI: Inspection: abdomen appears normal, Bowel sounds: active, all quadrants, Palpation: abdomen is soft and non-tender, in all quadrants. 16:45 Back: pain, is absent, ROM is normal. 16:45 Skin: Appearance: normal except for affected area, left lower leg warm to touch with very mild general erythema and mild swelling. 16:45 Neuro: Orientation: to person, place \\T\\ time. Mentation: able to follow commands, slow to respond, Motor: moves all fours, strength is normal, Sensation: is normal. 17:08 ECG was reviewed by the Attending Physician. Vital Signs: 16:06 BP 147 / 63; Pulse 92; Resp 17; Temp 101(O); Pulse Ox 99% on R/A; Weight 85.73 kg; ab2 Height 5 ft. 11 in. (180.34 cm); Pain 0/10; 17:30 BP 145 / 73; Pulse 85; Resp 18; Pulse Ox 97% on R/A; jb4 19:15 BP 123 / 57; Pulse 79; Resp 13 S; Temp 99.6(O); Pulse Ox 98% on R/A; Pain 3/10; jb4 16:06 Body Mass Index 26.36 (85.73 kg, 180.34 cm) ab2 NIH Stroke Scale Scores: 16:10 NIHSS Score: 0 ab2 MDM: 16:25 Patient medically screened. cp 17:50 Data reviewed: vital signs, nurses notes, lab test result(s), EKG, radiologic studies, cp CT scan, plain films. 17:50 Differential Diagnosis: CVA, electrolyte abnormality, meningitis, pneumonia, sepsis, cp UTI, volume depletion. Test interpretation: by ED physician or midlevel provider: ECG, plain radiologic studies. 18:15 Physician consultation: Andrey Obrien was called at 18:15, was contacted at 18:15, regarding admission, to the telemetry unit. patient's condition, and will see patient in ED, shortly. 07/21 16:29 Order name: Basic Metabolic Panel; Complete Time: 17:38 cp 07/21 17:38 Interpretation: Normal except: GLUC 112. 07/21 16:29 Order name: CBC with Diff; Complete Time: 17:38 cp 07/21 17:39 Interpretation: Normal except: WBC 13.3; RBC 3.85; HGB 11.3; HCT 34.2; MPV 7.5; HILL% cp 87.1; LYM% 4.4; NEUT A 11.6; LYMA 0.6. 07/21 16:29 Order name: LFT's; Complete Time: 17:38 cp 07/21 17:39 Interpretation: Normal except: ALK 156; GLOB 3.9; A/G 1.0. cp 07/21 16:29 Order name: Magnesium; Complete Time: 17:38 cp 07/21 17:39 Interpretation: MG 1.9; Reviewed. 07/21 16:29 Order name: NT PRO-BNP; Complete Time: 17:38 cp 07/21 16:29 Order name: PT-INR; Complete Time: 17:38 cp 07/21 16:29 Order name: Troponin HS; Complete Time: 17:38 cp 07/21 17:39 Interpretation: Reviewed. 07/21 16:29 Order name: Urine Microscopic Only; Complete Time: 18:19 cp 07/21 16:29 Order name: Blood Culture Adult (2) 07/21 16:29 Order name: Procalcitonin; Complete Time: 17:38 cp 07/21 16:29 Order name: Lactate; Complete Time: 17:38 cp 07/21 17:40 Interpretation: Reviewed. 07/21 16:29 Order name: COVID-19/FLU A+B (Document "Date of Onset" if Symptomatic); Complete Time: cp 17:41 07/21 16:55 Order name: CBC Smear Scan; Complete Time: 17:38 EDMS 07/21 17:54 Order name: Urine Dipstick-Ancillary; Complete Time: 18:01 EDMS 07/21 16:29 Order name: XRAY Chest (1 view); Complete Time: 17:41 cp 07/21 17:41 Interpretation: Report review. 07/21 16:29 Order name: EKG; Complete Time: 16:30 cp 07/21 16:29 Order name: Cardiac monitoring; Complete Time: 17:27 cp 07/21 16:29 Order name: EKG - Nurse/Tech; Complete Time: 17:27 cp 07/21 16:29 Order name: IV Saline Lock; Complete Time: 16:42 cp 07/21 16:29 Order name: Labs collected and sent; Complete Time: 16:42 cp 07/21 16:29 Order name: O2 Per Protocol; Complete Time: 16:42 cp 07/21 16:29 Order name: CT Head Brain wo Cont; Complete Time: 17:38 cp 07/21 17:40 Interpretation: Report reviewed. cp 07/21 16:29 Order name: US Extremity Venous W Compression Olvin; Complete Time: 17:41 cp 07/21 17:41 Interpretation: Report reviewed. cp 07/21 18:11 Order name: Diet Regular; Complete Time: 18:11 cp 07/21 18:13 Order name: Urine Culture EDMS 07/21 16:29 Order name: O2 Sat Monitoring; Complete Time: 16:42 cp 07/21 16:29 Order name: Urine Dipstick-Ancillary (obtain specimen); Complete Time: 18:09 cp EC:08 Rate is 83 beats/min. Rhythm is regular. [place] interval is normal. QRS interval is cp prolonged at 102 msec. QT interval is normal. T waves are Inverted in leads aVL, aVR. Interpreted by me. Reviewed by me. Administered Medications: 17:00 Drug: NS 0.9% (30 ml/kg) 30 ml/kg Route: IV; Rate: bolus; Site: right antecubital; [facility] 17:00 Drug: vancoMYCIN 1 grams Route: IVPB; Infused Over: 2 hrs; Site: right antecubital; 4 17:00 Drug: Cefepime 1 grams Route: IVPB; Rate: 200 ml/hr; Infused Over: 30 mins; Site: left jb4 antecubital; 17:41 Follow up: Response: No adverse reaction; IV Intake: 100ml [facility] 17:00 Drug: Tylenol 1000 mg Route: PO; jb4 20:52 Drug: Flomax (tamsulosin) 0.4 mg Route: PO; ag7 Disposition: 07/22 07:23 Co-signature as Attending Physician, David Weaver MD I agree with the assessment and kdr plan of care. Disposition Summary: 07/21/21 18:19 Hospitalization Ordered Hospitalization Status: Inpatient Admission cp Provider: Elmer Ribeiro cp Location: Telemetry/MedSurg (Inpatient) cp Condition: Stable cp Problem: new cp Symptoms: have improved cp Bed/Room Type: Standard cp Room Assignment: 207(07/21/21 20:30) cg Diagnosis - Altered mental status, unspecified cp - UTI/ Urinary tract infection, site not specified cp - Cellulitis of left lower limb cp Forms: - Medication Reconciliation Form cp - SBAR form cp NIH Stroke Scale - NIH Stroke Score Date: 07/21/2021 Time: 16:10 Total Score = 0 1a. Level of Consciousness (LOC) - 0(Alert) 1b. Level of Consciousness (LOC) (Month \\T\\ Age) - 0(Both) 1c. LOC Commands (Open \\T\\ Closes Eyes/Retail Reset Merchandiser) - 0(Both) 2. Best Gaze (Lateral Gaze Paresis) - 0(Normal) 3. Visual Field Loss - 0(No visual loss) 4. Facial Palsy - 0(Normal) 5a. Left Arm: Motor (10-second hold) - 0(No drift) 5b. Right Arm: Motor (10-second hold) - 0(No drift) 6a. Left Leg: Motor (5-second hold - always test supine) - 0(No drift) 6b. Right Leg: Motor (5-second hold - always test supine) - 0(No drift) 7. Limb Ataxia (finger/nose \\T\\ heel/berrios - test with eyes open) - 0(Absent) 8. Sensory Loss (pinprick arms/legs/face) - 0(Normal) 9. Best Language: Aphasia (description/naming/reading) - 0(No aphasia) 10. Dysarthria (speech clarity - read or repeat words) - 0(Normal) 11. Extinction and Inattention (visual/tactile/auditory/spatial/personal) - 0(No abnormality) Initials: ab2 Signatures: Dispatcher [employer] EDMS David Weaver MD MD kdr Andrey Obrien, CAR REPAIRER APPRENTICE-C CAR REPAIRER APPRENTICE-Cla1 Darshan Acharya PA PA cp Yulissa Winslow, RN RN cg Joe Briseno, RN RN jb4 Teri Guallpa RN RN jl7 Kev Samuels ab2 Cee Dos Santos, BETO RN ag7 Corrections: (The following items were deleted from the chart) 07/21 20:30 18:19 cp cg
--- NOTE | 2021-07-21 18:20 | ER ---
Nurse's Notes [facility] Name: Christopher Le Age: 70 yrs Sex: Male : 1950 Arrival Date: 07/21/2021 Time: 15:59 Bed 8 Private MD: Arjun Malik B Diagnosis: Altered mental status, unspecified;UTI/ Urinary tract infection, site not specified;Cellulitis of left lower limb Presentation: 07/21 16:06 Chief complaint: Patient states: "He has a fever and had some confusion at home. He ab2 said he didn't know what day it was or where he was this morning." Pt c/o fever, chills and weakness. Pt alert and oriented x4 on arrival to ED an answered all questions appropriately. Coronavirus screen: Vaccine status: Patient reports receiving the 2nd dose of the covid vaccine. Client denies travel out of the [place] in the last 14 days. Ebola Screen: Patient negative for fever greater than or equal to 101.5 degrees Fahrenheit, and additional compatible Ebola Virus Disease symptoms Patient denies exposure to infectious person. Patient denies travel to an Ebola-affected area in the 21 days before illness onset. No symptoms or risks identified at this time. Initial Sepsis Screen: Does the patient meet any 2 criteria? Temp <36.0*C (96.8*F)) or > 38.3*C (100.9*F). HR > 90 bpm. Initial Sepsis Screen: Does the patient have a suspected source of infection? No. Patient's initial sepsis screen is negative. Risk Assessment: Do you want to hurt yourself or someone else? Patient reports no desire to harm self or others. Onset of symptoms is unknown. 16:06 Method Of Arrival: Ambulatory ab2 16:06 Acuity: SARA 3 ab2 Triage Assessment: 16:10 General: Appears in no apparent distress. comfortable, Behavior is calm, cooperative, ab2 appropriate for age. Pain: Denies pain. EENT: No deficits noted. No signs and/or symptoms were reported regarding the EENT system. Neuro: Level of Consciousness is awake, alert, obeys commands, Oriented to person, place, time, situation, Appropriate for age Dried Fruit Washer are equal bilaterally Moves all extremities. Gait is steady, Speech is normal, Facial symmetry appears normal, Intact. Cardiovascular: Denies chest pain, shortness of breath, Patient's skin is warm and dry. Respiratory: Airway is patent Respiratory effort is even, unlabored, Respiratory pattern is regular, symmetrical. GI: No deficits noted. No signs and/or symptoms were reported involving the gastrointestinal system. : No deficits noted. No signs and/or symptoms were reported regarding the genitourinary system. Derm: Skin Skin temperature is warm. Musculoskeletal: No deficits noted. No signs and/or symptoms reported regarding the musculoskeletal system. Historical: - Allergies: 16:09 No Known Allergies; ab2 - Home Meds: 16:24 ezetimibe 10 mg oral tab 1 tab once daily [Active]; buprenorphine-naloxone 8-2 mg jl7 sublingual film 1 film BID [Active]; ropinirole 2 mg Oral tab 1 tab [Active]; rosuvastatin 5 mg oral cpSP [Active]; gabapentin 600 mg Oral tab twice a day [Active]; duloxetine 60 mg Oral cpDR 1 cap once daily [Active]; olmesartan 40 mg oral tab 1 tab once daily [Active]; - PMHx: 16:09 Chronic pain; Hypertensive disorder; ab2 - Immunization history:: Adult Immunizations up to date. - Social history:: Smoking status: Patient denies any tobacco usage or history of. Screenin:07 Abuse screen: Denies threats or abuse. Nutritional screening: No deficits noted. ag7 Tuberculosis screening: No symptoms or risk factors identified. Fall Risk No fall in past 12 months (0 pts). Secondary diagnosis (15 points) HTN. IV access (20 points). Ambulatory Aid- None/Bed Rest/Nurse Assist (0 pts). Gait- Normal/Bed Rest/Wheelchair (0 pts) Mental Status- Oriented to own ability (0 pts). Total Dasilva Fall Scale indicates Low Risk Score (25-44 pts). Fall prevention measures have been instituted. Side Rails Up X 2 As available Patient and Family Educated on Fall Prevention Program and strategies. Assessment: 16:20 General: Appears in no apparent distress. comfortable, Behavior is calm, cooperative, jb4 appropriate for age. Pain: Denies pain. Neuro: Level of Consciousness is awake, alert, obeys commands, Oriented to person, place, time, situation. Cardiovascular: Patient's skin is warm and dry. Respiratory: Airway is patent Respiratory effort is even, unlabored, Respiratory pattern is regular, symmetrical. GI: No signs and/or symptoms were reported involving the gastrointestinal system. : No signs and/or symptoms were reported regarding the genitourinary system. EENT: No signs and/or symptoms were reported regarding the EENT system. Derm: Skin is intact, Skin is pink, warm \\T\\ dry. Musculoskeletal: Circulation, motion, and sensation intact. Range of motion: intact in all extremities. 17:30 Reassessment: Patient appears in no apparent distress at this time. Patient and/or jb4 family updated on plan of care and expected duration. Pain level reassessed. Patient is alert, oriented x 3, equal unlabored respirations, skin warm/dry/pink. 19:15 Reassessment: Patient and/or family updated on plan of care and expected duration. Pain jb4 level reassessed. Patient is alert, oriented x 3, equal unlabored respirations, skin warm/dry/pink. c/o headache, pounding 3/10, constant, lights off Patient states feeling better. Patient states symptoms have improved. 20:15 Reassessment: No changes from previously documented assessment. Patient and/or family ag7 updated on plan of care and expected duration. Pain level reassessed. Patient is alert, oriented x 3, equal unlabored respirations, skin warm/dry/pink. Patient denies pain at this time. 21:15 Reassessment: Patient and/or family updated on plan of care and expected duration. Pain ag7 level reassessed. Patient is alert, oriented x 3, equal unlabored respirations, skin warm/dry/pink. Patient denies pain at this time. Vital Signs: 16:06 BP 147 / 63; Pulse 92; Resp 17; Temp 101(O); Pulse Ox 99% on R/A; Weight 85.73 kg; ab2 Height 5 ft. 11 in. (180.34 cm); Pain 0/10; 17:30 BP 145 / 73; Pulse 85; Resp 18; Pulse Ox 97% on R/A; jb4 19:15 BP 123 / 57; Pulse 79; Resp 13 S; Temp 99.6(O); Pulse Ox 98% on R/A; Pain 3/10; jb4 16:06 Body Mass Index 26.36 (85.73 kg, 180.34 cm) ab2 NIH Stroke Scale Scores: 16:10 NIHSS Score: 0 ab2 ED Course: 15:59 Patient arrived in ED. as 15:59 Arjun Malik MD is Private Physician. as 16:05 [facility]. cp 16:05 David Weaver MD is Attending Physician. cp 16:08 Triage completed. ab2 16:11 Arm band placed on right wrist. ab2 16:13 Joe Briseno, BETO is Primary Nurse. jb4 16:36 Inserted saline lock: 18 gauge in right antecubital area, using aseptic technique. jb4 Blood collected. 16:36 Initial lab(s) drawn, by me, sent to lab. First set of blood cultures drawn by me. jb4 Second set of blood cultures drawn by ED staff. Inserted saline lock: 20 gauge in left antecubital area, using aseptic technique. Blood collected. 16:54 CT Head Brain wo Cont In Process Unspecified. EDMS 17:24 XRAY Chest (1 view) In Process Unspecified. EDMS 17:33 US Extremity Venous W Compression Olvin In Process Unspecified. EDMS 18:07 EKG done, by ED staff, reviewed by Darshan RECIO. mb7 18:09 Urine Microscopic Only Sent. mb7 18:18 Elmer Ribeiro MD is Hospitalizing Provider. cp 22:07 Patient has correct armband on for positive identification. Bed in low position. Call ag7 light in reach. Side rails up X 1. 22:08 No provider procedures requiring assistance completed. Patient admitted, IV remains in ag7 place. Administered Medications: 17:00 Drug: NS 0.9% (30 ml/kg) 30 ml/kg Route: IV; Rate: bolus; Site: right antecubital; jb4 17:00 Drug: vancoMYCIN 1 grams Route: IVPB; Infused Over: 2 hrs; Site: right antecubital; jb4 17:00 Drug: Cefepime 1 grams Route: IVPB; Rate: 200 ml/hr; Infused Over: 30 mins; Site: left jb4 antecubital; 17:41 Follow up: Response: No adverse reaction; IV Intake: 100ml jb4 17:00 Drug: Tylenol 1000 mg Route: PO; jb4 20:52 Drug: Flomax (tamsulosin) 0.4 mg Route: PO; ag7 Intake: 17:41 IV: 100ml; Total: 100ml. jb4 Outcome: 18:19 Decision to Hospitalize by Provider. cp 21:39 Admitted to Med/surg Report called to Reprot given to Marisol. tw5 22:08 Admitted to ag7 22:08 Condition: stable 22:08 Patient left the ED. ag7 NIH Stroke Scale - NIH Stroke Score Date: 07/21/2021 Time: 16:10 Total Score = 0 1a. Level of Consciousness (LOC) - 0(Alert) 1b. Level of Consciousness (LOC) (Month \\T\\ Age) - 0(Both) 1c. LOC Commands (Open \\T\\ Closes Eyes/Smooth Plater) - 0(Both) 2. Best Gaze (Lateral Gaze Paresis) - 0(Normal) 3. Visual Field Loss - 0(No visual loss) 4. Facial Palsy - 0(Normal) 5a. Left Arm: Motor (10-second hold) - 0(No drift) 5b. Right Arm: Motor (10-second hold) - 0(No drift) 6a. Left Leg: Motor (5-second hold - always test supine) - 0(No drift) 6b. Right Leg: Motor (5-second hold - always test supine) - 0(No drift) 7. Limb Ataxia (finger/nose \\T\\ heel/berrios - test with eyes open) - 0(Absent) 8. Sensory Loss (pinprick arms/legs/face) - 0(Normal) 9. Best Language: Aphasia (description/naming/reading) - 0(No aphasia) 10. Dysarthria (speech clarity - read or repeat words) - 0(Normal) 11. Extinction and Inattention (visual/tactile/auditory/spatial/personal) - 0(No abnormality) Initials: ab2 Signatures: Dispatcher [employer] EDBekah Moura Corey, PA PA cp Bryson, James, RN RN jb4 Teri Guallpa RN RN jl7 Julia Pollock tw5 Rosalina Anne mb7 Kev Samuels ab2 Cee Dos Santos, BETO RN ag7
--- NOTE | 2021-07-21 19:43 | P.HP ---
Certification for Inpatient Patient admitted to: Inpatient With expected LOS: >2 Midnights Patient will require the following post-hospital care: None Practitioner: I am a practitioner with admitting privileges, knowledge of patient current condition, hospital course, and medical plan of care. Services: Services provided to patient in accordance with Admission requirements found in Title 42 Section 412.3 of the Code of Federal Regulations Patient History Date of Service: 07/21/21 Reason for admission: Sepsis History of Present Illness: 70-year-old male with history of hypertension, chronic pain, arthritis, hyperlipidemia, RLS, SAMEERA presents emergency department for confusion, fever. His at bedside reports that throughout the day she noticed he was confused unable to answer some basic questions that reason brought to the emergency department for evaluation, patient was found to be febrile upon arrival with temperature of 101. Code sepsis was called, blood and urine cultures were obtained further evaluation was completed in the ER which revealed leukocytosis, questionable urinary tract infection on exam patient with possible cellulitis of left lower extremity. His mental status has improved greatly is back at his baseline currently after IV fluids, Tylenol and initiation of antibiotics. CT scan of the head was negative for any acute findings patient with no other neurological findings neck is supple no headache. ED provider wishes to admit for sepsis without severe sepsis or septic shock suspect cellulitis left lower extremity/UTI. Allergies No Known Allergies Allergy (Verified 07/05/15 13:12) Home Medications: Brimonidine Tartrate [Alphagan P] 1 drop OP BID 07/05/15 Cyclosporine [Restasis] 1 each OP BID 07/05/15 Doxycycline Monohydrate [Oracea] 40 mg PO DAILY 07/05/15 Finasteride [Proscar] 5 mg PO DAILY 07/05/15 Gabapentin [Neurontin] 600 mg PO BID 07/05/15 Hydrocodone/Acetaminophen [Hydrocodon-Acetaminoph 7.5-325] 1 tab PO BID 07/05/15 Pitavastatin Calcium [Livalo] 2 mg PO DAILY 07/05/15 Ropinirole HCl 2 mg PO DAILY 07/05/15 Solifenacin [Vesicare] 10 mg PO DAILY 07/05/15 Tramadol HCl [Ultram] 50 mg PO TID PRN 07/05/15 Zolpidem Tartrate [Ambien] 10 mg PO BEDTIME 07/05/15 - Past Medical/Surgical History -: Hypertension -: Osteoarthritis/chronic pain -: SAMEERA -: Hyperlipidemia -: Restless leg syndrome -: Hernia repair -: knee arthroscopy Psychosocial/ Personal History: Patient lives at home with his family - Family History Family History: Reviewed- Non-Contributory - Social History Smoking Status: Never smoker Alcohol use: No CD- Drugs: No Caffeine use: Yes Place of Residence: Home Review of Systems 10-point ROS is otherwise unremarkable General: Fever, Chills, Malaise Genitourinary: Frequency, Urgency, Incontinence Physical Examination - Physical Exam General: Alert, In no apparent distress, Oriented x3 HEENT: Atraumatic, PERRLA, Mucous membr. moist/pink, EOMI, Sclerae nonicteric Neck: Supple, 2+ carotid pulse no bruit, No LAD, Without JVD or thyroid abnormality Respiratory: Clear to auscultation bilaterally, Normal air movement Cardiovascular: Regular rate/rhythm, Normal S1 S2 Capillary refill: <2 Seconds Gastrointestinal: Normal bowel sounds, No tenderness Musculoskeletal: Swelling, Erythema, Warmth (Left lower extremity) Integumentary: Erythema, Warmth Neurological: Normal speech, Normal strength at 5/5 x4 extr, Normal tone, Normal affect - Studies Laboratory Data (last 24 hrs) 07/21/21 16:36: PT 12.0, INR 1.09 07/21/21 16:36: WBC 13.3 H, Hgb 11.3 L, Hct 34.2 L, Plt Count 393 07/21/21 16:36: Sodium 137, Potassium 3.9, BUN 13, Creatinine 0.84, Glucose 112 H, Magnesium 1.9 D, Total Bilirubin 0.3, AST 26, ALT 43, Alkaline Phosphatase 156 H Assessment and Plan - Plan Assessment: Sepsis without severe sepsis or septic shock secondary to left lower extremity cellulitis/uti Metabolic encephalopathy related to sepsis Osteoarthritis/chronic pain Hypertension Hyperlipidemia SAMEERA RLS Plan: Sepsis without severe sepsis or septic shock secondary to left lower extremity cellulitis/uti: Blood and urine cultures were obtained patient has been started on broad-spectrum antibiotics vancomycin/cefepime. Left lower extremity with mild erythema, warmth and swelling present, patient reports he does deal with intermittent swelling in the area. Patient also reports urinary frequency/urgency does struggle with urinary incontinence periodically as he is unable to make it to the bathroom in time for the last month or so, UA showed positive leukocytes/nitrites but urine microscopic was without bacteria. We will continue coverage for both cellulitis and UTI and await results from urine/blood cultures. Metabolic encephalopathy related to sepsis: Continue as above, patient mental status improving close to baseline at this time. Patient's neck is supple no headache no other signs of meningitis. Osteoarthritis/chronic pain: Obtain and continue patient's home medications Hypertension: Obtain and continue patient's home medications Hyperlipidemia: Obtain and continue patient's home medications SAMEERA: Provide with CPAP at night as needed RLS: Continue home medication DVT PPX: Lovenox Code status: Full Discharge Plan: Home Plan to discharge in: 72 Hours - Advance Directives Does patient have a Living Will: No Does patient have a Durable POA for Healthcare: No - Code Status/Comfort Care Code Status Assessed: Yes (Full code) Critical Care: No Time Spent Managing Pts Care (In Minutes): 55
[2021-07-21] MEDS ORDERED: TAMSULOSIN 0.4 MG SR CAP ONE (20:34)
[2021-07-21] MEDS ORDERED: VANCOMYCIN 1 GM in NA CHLORIDE 0.9% 250 ML IVPB SCH (21:42)
[2021-07-21] MEDS ORDERED: ONDANSETRON 4 MG/2 ML VIAL IV PRN (21:42)
[2021-07-21] MEDS ORDERED: MORPHINE 2 MG/ML SYR IV PRN (21:42)
[2021-07-21] MEDS: BUPRENORPHINE HCL SL SCH (22:24)
[2021-07-21] MEDS: [UNRECOGNIZED DRUG - OTHER] SL SCH (22:24)
[2021-07-21] MEDS: NALOXONE HCL SL SCH (22:24)
[2021-07-21] MEDS ORDERED: VANCOMYCIN 500 MG in NA CHLORIDE 0.9% 100 ML IVPB ONE (23:00)
[2021-07-21] MEDS ORDERED: VANCOMYCIN 500 MG in NA CHLORIDE 0.9% 100 ML IVPB SCH (23:00)
[2021-07-21] MEDS: ROPINIROLE HCL 1 MG TAB PO SCH (23:14)
[2021-07-21 23:24] LABS: Urine Appearance Clear (Clear); Urine Bilirubin Negative (Negative); Urine Blood 3+ (Negative); Urine Color Yellow (Yellow); Urine Glucose Negative (Negative); Urine Protein Negative (Negative); Urine Specific Gravity 1.015 (1.005-1.030); Urine Urobilinogen 0.2 mg/dL (0.2-1.0); Urine pH 5.5 (5.0-7.0)
[2021-07-21 23:25] LABS: Urine Microscopic Reflex ORDER UMIC
[2021-07-21 23:31] LABS: Urine Bacteria <20 /HPF (NONE SEEN); Urine RBC >50 /HPF (NONE SEEN); Urine Yeast MANY (NONE SEEN)
[2021-07-21 23:58] VITALS: BMI 27.1
[2021-07-22 05:05] LABS: Absolute Lymphocytes (CBC) 0.7 K/uL (0.7-4.9); Hematocrit 28.3 % (39.6-49.0); Lymphocytes % 5.6 % (15.3-44.8); MPV 7.9 fL (7.6-11.3); RBC Red Blood Cell Count 3.14 M/uL (4.33-5.43)
[2021-07-22 05:22] LABS: ALT/SGPT 49 U/L (12-78); AST/SGOT 41 U/L (15-37); Albumin 2.8 g/dL (3.4-5.0); Alkaline Phosphatase 136 U/L (45-117); BUN Blood Urea Nitrogen 11 mg/dL (7-18); Bicarbonate 26 mmol/L (21-32); Bilirubin Total 0.4 mg/dL (0.2-1.0); Glucose Level 133 mg/dL (74-106); Potassium 3.6 mmol/L (3.5-5.1); Protein, Total 6.3 g/dL (6.4-8.2); Sodium Level 140 mmol/L (136-145)
[2021-07-22] MEDS: CEFEPIME 1 GM in NA CHLORIDE 0.9% 100 ML IV SCH ×2 (05:31→16:35)
[2021-07-22] MEDS: EZETIMIBE 10 MG TAB PO SCH (05:34)
--- NOTE | 2021-07-22 06:06 | P.PN ---
Date of Service: 07/22/21 Subjective: Less confused, more alert, oriented x3 Erythema resolved, reports urinary frequency ROS: 10 point ROS as noted above, otherwise negative Physical exam GEN: Alert, orientedx3, NAD HEENT: Normal conjunctiva, sclera anicteric, small superficial lesion to upper lip CV: Regular rate and rhythm, trace b/l lower extremity edema Pulm: Nonlabored respirations on room air ABD: Soft, nontender, nondistended Neuro: Normal speech, normal affect Problem List Sepsis without severe sepsis or septic shock secondary to left lower extremity cellulitis/uti Metabolic encephalopathy related to sepsis Osteoarthritis/chronic pain Hypertension Hyperlipidemia SAMEERA RLS continue broad spectrum antibiotics, f/u cultures and de-escalate per sensitivities LLE erythema resolved reports ~1 month of worsened urinary urgency/incontinence UA concerning for UTI / prostatitis s/p TURP microscopic hematuria CT ordered to eval urology consult tomorrow continue home meds VTE: lovenox Code: full Dispo: home, ~48hrs Time Spent Managing Pts Care (In Minutes): 35
[2021-07-22] MEDS: GABAPENTIN 300 MG CAP PO SCH ×2 (08:17→21:14)
[2021-07-22] MEDS: DULOXETINE 30 MG CAP PO SCH (08:17)
[2021-07-22] MEDS: ROPINIROLE HCL 1 MG TAB PO SCH ×2 (08:18→19:57)
[2021-07-22] MEDS: ROSUVASTATIN 10 MG TAB PO SCH (08:18)
[2021-07-22] MEDS: NALOXONE HCL SL SCH ×2 (08:19→21:00)
[2021-07-22] MEDS: ENOXAPARIN 40 MG/0.4 ML SQ SCH (08:19)
[2021-07-22] MEDS: [UNRECOGNIZED DRUG - OTHER] SL SCH ×2 (08:19→21:00)
[2021-07-22] MEDS: BUPRENORPHINE HCL SL SCH ×2 (08:19→21:00)
[2021-07-22] MEDS: HOME MED 1 EA UNK (Cyclosporine [Restasis] Droperette) OPTH SCH ×2 (08:19→21:00)
[2021-07-22] MEDS ORDERED: VANCOMYCIN 1.5 GM in NA CHLORIDE 0.9% 500 ML IVPB SCH (09:00)
[2021-07-22] MEDS ORDERED: POTASSIUM CL SA 10 MEQ TAB PO ONE (09:00)
[2021-07-22] MEDS: ACETAMINOPHEN 500 MG TAB PO PRN ×2 (10:27→15:49)
--- NOTE | 2021-07-22 16:29 | RAD REPORT ---
EXAM DESCRIPTION: CT - Abdomen Pelvis W/Wo Contrast - 07/22/2021 4:18 pm CLINICAL HISTORY: eval prostate s/p turp, hydronephrosis, stone Pelvic pain, swelling COMPARISON: Pelvis dated 05/03/2021 TECHNIQUE: Axial non-contrast CT imaging was performed. Following this, biphasic contrast enhanced i maging through the abdomen and pelvis was performed with coronal and sagittal reformatted images. All CT scans are performed using dose optimization technique as appropriate and may include automated exposure control or mA/KV adjustment according to patient size. FINDINGS: The lower lung byrnes are clear. The liver, spleen, pancreas and adrenal glands are normal. The non-contrast portion of the study does not demonstrate any urinary tract stones. No hydronephrosi s is seen in either kidney. Benign left renal cyst is present anteriorly. No solid renal mass evident . No bowel obstruction, free fluid or abscess. Normal appendix. Moderate stool is present throughout th e colon. Mild lower lumbar spondylosis is present. Mild anterolisthesis of L4 on 5 and L5 on S1. 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 Evidence of prior left inguinal hernia repair. No gross prostate or urinary bladder abnormality seen. IMPRESSION: No urinary tract stone or hydronephrosis. No acute or worrisome intra-abdominal/ pelvic process.
[2021-07-22] MEDS: HOME MED 1 EA UNK (Latanoprost/Pf [Latanoprost 0.005% Eye Drop] 7.5 ML Drops) OPTH SCH (21:00)
[2021-07-22] MEDS: VALSARTAN 160 MG TAB PO SCH (21:13)
[2021-07-22] MEDS: TAMSULOSIN 0.4 MG SR CAP PO SCH (21:13)
[2021-07-23 04:37] LABS: Absolute Lymphocytes (CBC) 0.9 K/uL (0.7-4.9); Hematocrit 28.6 % (39.6-49.0); Lymphocytes % 10.4 % (15.3-44.8); RBC Red Blood Cell Count 3.23 M/uL (4.33-5.43)
[2021-07-23 04:52] LABS: ALT/SGPT 80 U/L (12-78); AST/SGOT 55 U/L (15-37); Albumin 3.1 g/dL (3.4-5.0); Alkaline Phosphatase 135 U/L (45-117); BUN Blood Urea Nitrogen 10 mg/dL (7-18); Bicarbonate 27 mmol/L (21-32); Bilirubin Total 0.4 mg/dL (0.2-1.0); Glucose Level 105 mg/dL (74-106); Potassium 3.8 mmol/L (3.5-5.1); Protein, Total 6.7 g/dL (6.4-8.2); Sodium Level 140 mmol/L (136-145)
[2021-07-23] MEDS: CEFEPIME 1 GM in NA CHLORIDE 0.9% 100 ML IV SCH (05:16)
[2021-07-23] MEDS: EZETIMIBE 10 MG TAB PO SCH (05:16)
--- NOTE | 2021-07-23 06:14 | P.PN ---
Date of Service: 07/23/21 Subjective: slight hematuria yesterday then drop or two of blood after urinating feels slightly better, not urinating as often, less incontinence / urgency ROS: 10 point ROS as noted above, otherwise negative Physical exam GEN: Alert, oriented x3, NAD HEENT: Normal conjunctiva, sclera anicteric, small superficial lesion to upper lip CV: Regular rate and rhythm, trace b/l lower extremity edema Pulm: Non-labored respirations on room air ABD: Soft, nontender, nondistended Neuro: Normal speech, normal affect Problem List Severe sepsis secondary to UTI vs prostatitis Metabolic encephalopathy related to sepsis Osteoarthritis/chronic pain Hypertension Hyperlipidemia SAMEERA RLS h/o enlarged prostate, s/p laser continue broad spectrum antibiotics - dc'd vanc on 07/22, f/u cultures and de- escalate per sensitivities LLE erythema resolved, unclear if truly had cellulitis, dc'd vanc reports ~1 month of worsened urinary urgency/incontinence UA concerning for UTI / prostatitis, culture pending states never had TURP, underwent laser microscopic hematuria on admission, yesterday with few drops of blood CT - no stone, no hydro urology consult continue home meds VTE: lovenox Code: full Dispo: home, ~24hrs Time Spent Managing Pts Care (In Minutes): 35
[2021-07-23] MEDS: DULOXETINE 30 MG CAP PO SCH (08:22)
[2021-07-23] MEDS: GABAPENTIN 300 MG CAP PO SCH ×2 (08:23→20:22)
[2021-07-23] MEDS: ENOXAPARIN 40 MG/0.4 ML SQ SCH (08:23)
[2021-07-23] MEDS: ROSUVASTATIN 10 MG TAB PO SCH (08:23)
[2021-07-23] MEDS: HOME MED 1 EA UNK (Cyclosporine [Restasis] Droperette) OPTH SCH ×2 (08:24→20:25)
[2021-07-23] MEDS: BUPRENORPHINE HCL SL SCH ×2 (08:25→20:25)
[2021-07-23] MEDS: [UNRECOGNIZED DRUG - OTHER] SL SCH ×2 (08:25→20:25)
[2021-07-23] MEDS: NALOXONE HCL SL SCH ×2 (08:25→20:25)
[2021-07-23] MEDS ORDERED: POTASSIUM CL SA 10 MEQ TAB PO ONE (09:00)
[2021-07-23] MEDS: levoFLOXacin 750 MG TAB PO SCH (13:23)
[2021-07-23] MEDS: VALSARTAN 160 MG TAB PO SCH (20:22)
[2021-07-23] MEDS: TAMSULOSIN 0.4 MG SR CAP PO SCH (20:22)
[2021-07-23] MEDS: ROPINIROLE HCL 1 MG TAB PO SCH (20:23)
[2021-07-23] MEDS: HOME MED 1 EA UNK (Latanoprost/Pf [Latanoprost 0.005% Eye Drop] 7.5 ML Drops) OPTH SCH (20:28)
[2021-07-24 04:32] LABS: Absolute Lymphocytes (CBC) 0.8 K/uL (0.7-4.9); Hematocrit 29.1 % (39.6-49.0); Lymphocytes % 11.6 % (15.3-44.8); MPV 7.6 fL (7.6-11.3); RBC Red Blood Cell Count 3.31 M/uL (4.33-5.43)
[2021-07-24 04:56] LABS: ALT/SGPT 75 U/L (12-78); AST/SGOT 40 U/L (15-37); Albumin 3.2 g/dL (3.4-5.0); Alkaline Phosphatase 142 U/L (45-117); BUN Blood Urea Nitrogen 9 mg/dL (7-18); Bicarbonate 27 mmol/L (21-32); Bilirubin Total 0.4 mg/dL (0.2-1.0); Glucose Level 109 mg/dL (74-106); Potassium 3.6 mmol/L (3.5-5.1); Protein, Total 7.1 g/dL (6.4-8.2); Sodium Level 138 mmol/L (136-145)
[2021-07-24] MEDS: EZETIMIBE 10 MG TAB PO SCH (06:03)
[2021-07-24] MEDS: ENOXAPARIN 40 MG/0.4 ML SQ SCH (07:34)
[2021-07-24] MEDS: ROSUVASTATIN 10 MG TAB PO SCH (07:35)
[2021-07-24] MEDS: GABAPENTIN 300 MG CAP PO SCH (07:35)
[2021-07-24] MEDS: DULOXETINE 30 MG CAP PO SCH (07:35)
[2021-07-24] MEDS: BUPRENORPHINE HCL SL SCH (07:36)
[2021-07-24] MEDS: NALOXONE HCL SL SCH (07:36)
[2021-07-24] MEDS: [UNRECOGNIZED DRUG - OTHER] SL SCH (07:36)
[2021-07-24] MEDS: HOME MED 1 EA UNK (Cyclosporine [Restasis] Droperette) OPTH SCH (07:36)
[2021-07-24] MEDS: levoFLOXacin 750 MG TAB PO SCH (07:36)
[2021-07-24 08:03] VITALS: O2SAT 97
[2021-07-24] MEDS ORDERED: POTASSIUM CL SA 10 MEQ TAB PO ONE (09:00)
--- NOTE | 2021-07-24 10:31 | CON ---
Reason For Consultation: Gross hematuria. History Of Present Illness: Mr. Le is a 70-year-old gentleman with hypertension, chronic pain, ar thritis, hyperlipidemia, and obstructive sleep apnea who was seen via the Emergency Department, but w ith confusion and fever. He was found to be febrile upon arrival to the Emergency Department with a temperature of 101 and sepsis response was initiated. Blood and urine cultures were obtained and ini tial evaluation revealed a leukocytosis with a white count of 13.3 on 07/21/2021. He was initiated o n IV antimicrobials and a CT scan of the head was unremarkable for any acute findings. He was then a dmitted for further management. Within the last 2 days since his admission, the patient notes that d espite not having had a Yi catheter inserted or recalling any specific trauma, he has had some kevin ss urethral bleeding that he has noted. They surmise that perhaps he might have inadvertently squeez ed and traumatized his phallus, but he does not recall doing any such thing. He denies any dysuria. He does acknowledge some lower urinary symptoms, though he feels that they are reasonably good since he had a GreenLight photovaporization of the prostate performed about [address] Arreola. He denies any associated pelvic or perineal pain. Past Medical History: Hypertension, arthritis, hyperlipidemia, and obstructive sleep apnea. Past Surgical History: GreenLight photovaporization of the prostate. Physical Examination: Phallus circumcised with no meatal lesions apparent, but with gross hematuria emanating of old dark b lood. No urethral tenderness. No gland or lesions noted. Scrotum normal without lesion. Testes no ntender and bilaterally descended. Diagnostic Studies: CT scan on 07/22/2021 with and without contrast revealed no upper tract stone or hydronephrosis. A benign left renal cyst was present anteriorly without any solid masses. My review of the imaging revealed that the cystic lesion in the left kidney was 8 Hounsfield units in the arterial phase indicative of a simple cyst as had previously been identified. Creatinine normal at 0.84. Culture of urine was unremarkable. Assessment: A 70-year-old gentleman with hypertension, chronic pain, arthritis, hyperlipidemia, and obstructive sleep apnea with gross urethral bleeding of uncertain origin, status post GreenLight phot ovaporization of the prostate 6 years ago with persistent mildly bothersome lower urinary tract sympt oms. I counseled the patient then that in the absence of any known trauma or issue, cystoscopic evaluation would be required to assess the source of the urethral bleeding. He has been on aggressive antimicr obial therapy, so an infectious etiology is unlikely, especially since he was treated with both vanco mycin and cefepime. As a result, we will see him in followup in the office for cystoscopy, digital r ectal exam, and consider PSA screening at that time. DESI/YANIRA Voice ID: [id number] Report ID: [id number]
[2021-07-24 12:35] VITALS: BP 122/60; TEMP 97.9
--- NOTE | 2021-07-24 14:33 | P.DS ---
Admission Date: 07/21/21 Discharge Date: 07/24/21 Disposition: ROUTINE DISCHARGE Discharge Condition: FAIR Reason for Admission: Sepsis Consultations: Urology-Dr. Garner Brief History of Present Illness: 70-year-old male with history of hypertension, chronic pain, arthritis, hyperlipidemia, RLS, SAMEERA presented to emergency department for confusion, fever. His at bedside reports that throughout the day she noticed he was confused unable to answer some basic questions. Patient was found to be febrile upon arrival with temperature of 101. Code sepsis was called, blood and urine cultures were obtained further evaluation was completed in the ER which revealed leukocytosis, UA suggesting urinary tract infection. On exam patient with possible cellulitis of left lower extremity. His mental status improved in the ED. CT scan of the head was negative for any acute findings patient with no other neurological findings neck is supple no headache. Patient admitted for further management. Hospital Course: Severe sepsis secondary to UTI vs prostatitis Metabolic encephalopathy related to sepsis Osteoarthritis/chronic pain Hypertension Hyperlipidemia SAMEERA RLS h/o enlarged prostate, s/p laser Patient admitted to the medical floor and treated with broad-spectrum antibiotics. UA concerning for UTI / prostatitis. Blood culture yielded no growth, urine culture no growth. continue broad spectrum antibiotics - dc'd vanc on 07/22, f/u cultures and de- escalate per sensitivities LLE erythema resolved. Patient reported 1 month of worsened urinary urgency/incontinence He states never had TURP, underwent laser CT abdomen and pelvis- no renal stone, or hydronephrosis. Seen by urology-Dr. Garner recommended follow-up with him in the office for cystoscopy after completing antibiotics. Patient clinically improved, tolerating diet, currently has no complaint, mental status baseline. He is deemed stable for discharge. Vital Signs/Physical Exam: Temp Pulse Resp BP Pulse Ox 97.9 F 75 18 122/60 95 07/24/21 12:00 07/24/21 12:00 07/24/21 12:00 07/24/21 12:07/24/21 12:00 General: Alert, In no apparent distress, Oriented x3 HEENT: Mucous membr. moist/pink Neck: Supple, JVD not distended Respiratory: Clear to auscultation bilaterally, Normal air movement Cardiovascular: No edema, Regular rate/rhythm, Normal S1 S2 Gastrointestinal: Soft and benign, Non-distended Musculoskeletal: No swelling Integumentary: No rashes, No erythema Neurological: Normal speech, Normal strength at 5/5 x4 extr Laboratory Data at Discharge: WBC 7.3 K/uL (4.3-10.9) D 07/24/21 03:47 Hgb 9.9 g/dL (13.6-17.9) L 07/24/21 03:47 Hct 29.1 % (39.6-49.0) L 07/24/21 03:47 Plt Count 360 K/uL (152-406) 07/24/21 03:47 PT 12.0 SECONDS (9.5-12.5) 07/21/21 16:36 INR 1.09 07/21/21 16:36 Sodium 138 mmol/L (136-145) 07/24/21 03:47 Potassium 3.6 mmol/L (3.5-5.1) 07/24/21 03:47 BUN 9 mg/dL (7-18) 07/24/21 03:47 Creatinine 0.68 mg/dL (0.55-1.3) 07/24/21 03:47 Glucose 109 mg/dL (74-106) H 07/24/21 03:47 Magnesium 1.9 mg/dL (1.8-2.4) D 07/21/21 16:36 Total Bilirubin 0.4 mg/dL (0.2-1.0) 07/24/21 03:47 AST 40 U/L (15-37) H 07/24/21 03:47 ALT 75 U/L (12-78) 07/24/21 03:47 Alkaline Phosphatase 142 U/L (45-117) H 07/24/21 03:47 Home Medications: Cyclosporine [Restasis] 1 each OP BID 07/05/15 Gabapentin [Neurontin] 300 mg PO BID 07/05/15 Ropinirole HCl 2 mg PO DAILY 07/05/15 Buprenorphine HCl/Naloxone HCl [Buprenorphine-Nalox 8-2Mg Film] 1 each SL BID 07/21/21 Duloxetine HCl 1 tab PO DAILY 07/21/21 Ezetimibe 1 tab PO [id number] 07/21/21 Latanoprost/Pf [Latanoprost 0.005% Eye Drop] 1 gtt EACH EYE BEDTIME 07/21/21 Olmesartan Medoxomil 1 tab PO BEDTIME 07/21/21 Rosuvastatin Calcium 1 tab PO DAILY 07/21/21 Tamsulosin [Flomax*] 0.4 mg PO BEDTIME #30 cap 07/24/21 levoFLOXacin [Levaquin*] 750 mg PO DAILY #7 tab 07/24/21 New Medications: Tamsulosin [Flomax*] 0.4 mg PO BEDTIME #30 cap levoFLOXacin [Levaquin*] 750 mg PO DAILY #7 tab Followup: Arjun Malik MD [Primary Care Provider] - 1 Week (call to schedule an appointment ) Carlos Garner [ACTIVE - CAN ADMIT] - 1-2 Weeks (urologist- call to schedule an appointment ) Time spent managing pt's care (in minutes): 37
== END 2021-07-24 14:45 | disposition home or self-care (01) | DRG 871 ==
LOC: ER 15:59 → ERHOLD 19:18 → 2ND 21:27
PROVIDERS: ADMIT Hospitalist; ATTEND Hospitalist
DX: A41.9 Sepsis, unspecified organism (principal); G93.41 Metabolic encephalopathy; N39.0 Urinary tract infection, site not specified; L03.116 Cellulitis of left lower limb; I10 Essential (primary) hypertension; R65.20 Severe sepsis without septic shock; M19.90 Unspecified osteoarthritis, unspecified site; E78.5 Hyperlipidemia, unspecified; G25.81 Restless legs syndrome; G47.33 Obstructive sleep apnea (adult) (pediatric); R31.29 Other microscopic hematuria; N41.9 Inflammatory disease of prostate, unspecified; Z20.822 Contact with and (suspected) exposure to COVID-19
CPT/HCPCS: 0240U; 36415; 70450; 71045; 74178; 80048; 80053; 80076; 80202; 81003; 81015; 83605; 83735; 83880; 84145; 84484; 85025; 85610; 87040; 87086; 87088; 93005; 93970; 99285; J0692; J1650; J2270; J3370; J7030; J7040; J7050; Q9967

== ENCOUNTER → 2023-06-15 | Emergency (ER) | payer OTHER ==
[~2023-06-15] MED LIST: ACETAMINOPHEN 500 MG TAB ONE; LIDOCAINE 1% 20 ML MDV ONE; NA CHLORIDE 0.9% 250 ML ONE; NA CHLORIDE 0.9% 500 ML ONE; VANCOMYCIN 1 GM/VIAL ONE
[2023-06-15 23:16] LABS: Absolute Eosinophils 0.1 K/uL (0-0.5); Absolute Lymphocytes (CBC) 0.4 K/uL (0.7-4.9); Absolute Monocytes 0.8 K/uL (0.1-1.3); Absolute Neutrophil 12.3 K/uL (1.8-8.0); Basophils % 0.2 % (0-1.3); Eosinophils % 0.8 % (0-4.4); Hematocrit 25.6 % (39.6-49.0); Hemoglobin 8.6 g/dL (13.6-17.9); Lymphocytes % 2.8 % (15.3-44.8); MCHC 33.4 g/dL (32.0-36.0); MCV 89.8 fL (80-100); MPV 7.8 fL (7.6-11.3); Monocytes % 5.9 % (3.3-12.3); Neutrophils % 90.3 % (41.7-73.7); Platelets 410 thou/uL (152-406); RBC Red Blood Cell Count 2.85 M/uL (4.33-5.43); Red Cell Distribution Width 14.4 % (12.1-15.2)
[2023-06-15 23:18] LABS: PT Prothrombin Time 13.6 SECONDS (9.5-12.5); PTT, Activated Partial Thromb 32.5 SECONDS (24.3-36.9); Protime INR 1.24
[2023-06-15 23:30] LABS: Albumin 3.5 g/dL (3.4-5.0); Albumin/Globulin Ratio 0.9 (1.1-1.8); Anion Gap 8.1 mEq/L (5.0-15.0); Bilirubin Total 0.3 mg/dL (0.2-1.0); C-Reactive Protein 13.3 mg/L (<3.00); Globulin 4.1 g/dL (2.3-3.5); Potassium 4.1 mEq/L (3.5-5.1); Protein, Total 7.6 g/dL (6.4-8.2)
[2023-06-16 00:48] LABS: SARS-CoV-2 Antigen CONTROL BLUE LINE VIS/BG OK; SARS-CoV-2 Antigen Rapid Res Negative (Negative)
--- NOTE | 2023-06-16 01:11 | ER ---
Nurse's Notes [facility] Name: Christopher Le Age: 72 yrs Sex: Male : 1950 Arrival Date: 06/15/2023 Time: 22:25 Bed 2 Private MD: Diagnosis: Cellulitis of right lower limb;Altered mental status, unspecified;Anemia in other chronic diseases classified elsewhere Presentation: 06/14 22:30 Chief complaint: EMS states: toned out for right knee redness, swelling, pain, and km8 fever. Coronavirus screen: Client denies travel out of the [place] in the last 14 days. Ebola Screen: No symptoms or risks identified at this time. Initial Sepsis Screen: Does the patient meet any 2 criteria? HR > 90 bpm. Does the patient have a suspected source of infection? No. Patient's initial sepsis screen is negative. Risk Assessment: Do you want to hurt yourself or someone else? Patient reports no desire to harm self or others. Onset of symptoms is unknown. 22:30 Method Of Arrival: EMS: [facility] km8 22:30 Acuity: SARA 2 km8 22:30 Care prior to arrival: Medication(s) given: Normal saline infusion, 100 mL IV km8 initiated. 20 GA, in the left hand. Triage Assessment: 22:30 General: Appears ill, Behavior is calm, cooperative, listless, quiet. Pain: Complains km8 of pain in right knee Unable to use pain scale. Does not appear to understand pain scale. EENT: No signs and/or symptoms were reported regarding the EENT system. Neuro: Level of Consciousness is obeys commands, listless, Oriented to person, place, time, situation. Cardiovascular: Patient's skin is warm and dry. Respiratory: Airway is patent Respiratory effort is even, unlabored, Respiratory pattern is regular, symmetrical. GI: No signs and/or symptoms were reported involving the gastrointestinal system. : No signs and/or symptoms were reported regarding the genitourinary system. Derm: Skin is healthy with good turgor, Skin is dry, Skin is pink, warm \T\ dry. Skin temperature is warm Wound noted right knee Wound is 1 month old surgical site; redness, swelling, warm to touch and painful. Musculoskeletal: Reports pain in right hip and right knee. Historical: - Allergies: 23:01 No Known Allergies; km8 - Home Meds: 06/15 00:35 gabapentin 600 mg Oral tab twice a day [Active]; olmesartan 20 mg oral tablet 1 tab km8 daily [Active]; buprenorphine-naloxone 8-2 mg sublingual film 1 film BID [Active]; ropinirole 2 mg Oral tab 1 tab every day at bedtime [Active]; duloxetine 60 mg Oral cpDR 1 cap once daily [Active]; ezetimibe 10 mg Oral tab 1 tab once daily [Active]; rosuvastatin 5 mg oral tablet 1 tab every other day [Active]; aspirin 81 mg oral capsule 1 cap 2 times per day [Active]; Cyclosporine opthalmic eye drops 0.05% twice a day [Active]; - PMHx: 06/14 23:01 Chronic pain; Hypertensive disorder; km8 - PSHx: 23:01 right knee replacement (Hypertensive disorder); km8 - Immunization history:: Client reports receiving the 2nd dose of the Covid vaccine, Flu vaccine is not up to date. - Social history:: Smoking status: Patient denies any tobacco usage or history of. Patient/guardian denies using alcohol, street drugs. Screenin:30 [facility] ED Fall Risk Assessment (Adult) History of falling in the last 3 months, km8 including since admission Yes- single mechanical fall (1 pt) Confusion or Disorientation Yes (5 pts) Intoxicated or Sedated No (0 pts) Impaired Gait Yes (1 pt) Mobility Assist Device Used No (0 pt) Altered Elimination Yes (1 pt) Score/Fall Risk Level 3 or more points = High Risk Oriented to surroundings, Maintained a safe environment, Educated pt \T\ family on fall prevention, incl call for assistance when getting out of bed, Assessed \T\ reinforced patient's understanding of fall precautions, Provided non-skid footwear, Hourly rounding (assess needs \T\ fall precautionary measures) done, Used ambulatory aids as needed (educated on \T\ assisted with), Implemented a Fall Risk Plan of Care, Remained w/in arm's length of patient and in sight while toileting, Offered frequent toileting (1:1 observation), Remained with patient while ambulating, Utilized family, sitter, or virtual rotary dump operator as indicated. Abuse screen: Denies threats or abuse. Denies injuries from another. Nutritional screening: No deficits noted. Tuberculosis screening: No symptoms or risk factors identified. Assessment: 22:30 Reassessment: see triage assessment. 8 06/15 00:22 Reassessment: Patient appears in no apparent distress at this time. Patient and/or [facility] family updated on plan of care and expected duration. Pain level reassessed. Patient is alert, oriented x 3, equal unlabored respirations, skin warm/dry/pink. General: Appears uncomfortable, Behavior is calm, cooperative, appropriate for age. Neuro: Level of Consciousness is awake, alert, obeys commands, Oriented to person, place, time, situation. 00:59 Reassessment: Dr. Ribeiro and ALMITA Adams at bedside doing right knee aspiration . [facility] 01:30 Reassessment: Patient appears in no apparent distress at this time. Patient and/or [facility] family updated on plan of care and expected duration. Pain level reassessed. Patient is alert, oriented x 3, equal unlabored respirations, skin warm/dry/pink. 02:27 Reassessment: Patient appears in no apparent distress at this time. No changes from [facility] previously documented assessment. Patient and/or family updated on plan of care and expected duration. Pain level reassessed. Patient is alert, oriented x 3, equal unlabored respirations, skin warm/dry/pink. 03:45 Reassessment: Patient appears in no apparent distress at this time. No changes from [facility] previously documented assessment. Patient and/or family updated on plan of care and expected duration. Pain level reassessed. Patient is alert, oriented x 3, equal unlabored respirations, skin warm/dry/pink. report called to BETO Jade from [facility]. Vital Signs: 06/14 22:30 BP 157 / 67; Pulse 100; Resp 18; Temp 100.5(O); Pulse Ox 98% on R/A; Weight 80.74 kg km8 (R); Height 5 ft. 10 in. (R); 22:45 BP 157 / 64; Pulse 101; Resp 18; Pulse Ox 100% on R/A; km8 23:30 BP 133 / 55; Pulse 93; Resp 18; Pulse Ox 100% on R/A; km8 06/15 00:00 BP 147 / 61; Pulse 107; Resp 20; Pulse Ox 100% on R/A; jb4 01:11 BP 140 / 62; Pulse 95; Resp 16; Pulse Ox 97% on R/A; km8 01:30 BP 148 / 64; Pulse 103; Resp 16; Pulse Ox 100% on R/A; km8 02:00 BP 120 / 92; Pulse 101; Resp 16; Pulse Ox 100% on R/A; km8 02:30 BP 134 / 63; Pulse 99; Resp 16; Pulse Ox 100% on R/A; jb4 02:38 Temp 99.9(O); km8 03:00 BP 152 / 53; Pulse 95; Resp 16; Pulse Ox 100% on R/A; jb4 03:30 BP 162 / 80; Pulse 91; Resp 16; Pulse Ox 97% on R/A; jb4 06/14 22:30 Body Mass Index 25.54 (80.74 kg, 177.8 cm) km8 [place] Coma Score: 06/14 22:30 Eye Response: to voice(3). Motor Response: obeys commands(6). Verbal Response: km8 oriented(5). Total: 14. ED Course: 22:29 Patient arrived in ED. lg3 22:29 Darshan Acharya PA is PHCP. cp 22:29 Facundo Ribeiro MD is Attending Physician. cp 22:30 Maintain EMS IV. Dressing intact. Site clean \T\ dry. Gauge \T\ site: 20 gauge left hand. km 8 Patient maintains SpO2 saturation greater than 95% on room air. 22:30 Arm band placed on right wrist. km8 22:30 Patient has correct armband on for positive identification. Placed in gown. Bed in low km8 position. Call light in reach. Side rails up X2. mergers and acquisitions associate on. Pulse ox on. NIBP on. 22:34 Princess Umaña, BETO is Primary Nurse. km8 22:36 Inserted saline lock: 20 gauge in right antecubital area, using aseptic technique. rv1 Blood collected. 22:54 Triage completed. km8 22:59 Initial lab(s) drawn, by oh, sent to lab. First set of blood cultures drawn by me, rv1 Second set of blood cultures drawn by me, EKG done, by ED staff, reviewed by Darshan RECIO. 23:01 CRP Sent. jb4 23:02 Blood Culture Adult (2) Sent. jb4 23:02 CBC with Diff Sent. jb4 23:02 CMP Sent. jb4 23:02 Lactate w/ 2H reflex if indic. Sent. jb4 23:02 Protime (+inr) Sent. jb4 23:02 Ptt, Activated Sent. jb4 23:08 CT Head C Spine In Process Unspecified. EDMS 23:15 Blood Culture Adult (2) Sent. rv1 23:15 CBC with Diff Sent. rv1 23:15 CMP Sent. rv1 23:15 Lactate w/ 2H reflex if indic. Sent. rv1 23:15 Protime (+inr) Sent. rv1 23:15 Ptt, Activated Sent. rv1 23:15 CRP Sent. rv1 23:45 Influenza Screen (a \T\ B) Sent. rv1 23:45 SARS RAPID Sent. rv1 23:45 COVID swab sent to lab. Flu and/or RSV swab sent to lab. rv1 23:52 XRAY Chest (1 view) In Process Unspecified. EDMS 23:52 XRAY Pelvis In Process Unspecified. EDMS 23:52 XRAY Knee RIGHT 3 view In Process Unspecified. EDMS 23:52 XRAY Hip RIGHT 2 view In Process Unspecified. EDMS 06/15 00:05 US Extremity Venous Unilateral Ltd In Process Unspecified. EDMS 00:23 Urinalysis W/Microscopic Sent. km8 00:23 Urine collected: clean catch specimen. km8 00:33 Initiated transfer to [facility] with Omkar Fragoso. 01:16 Aleece with [facility] transfer center stated her [employer] P[employer] requested all clinicals to be faxed to [phone]. 02:29 No provider procedures requiring assistance completed. km8 02:29 Patient transferred, IV remains in place. km8 02:29 Provided Education on: transfer process. km8 02:50 Pt accepted for transfer to [facility] Rm: [address] Wilmer Guadarrama \T\ 0244 wm per Anisha Galindo. 02:50 EMS accepted for transport with an ETA \T\ 0400. Administered Medications: 06/14 23:15 Drug: NS 0.9% IV 500 ml IV at 500 ml/hr continuous Route: IV; Rate: 500 ml/hr; Site: [facility] right antecubital; 06/15 00:15 Follow up: IV Status: Completed infusion; IV Intake: 500ml km8 00:18 Drug: Acetaminophen PO 1000 mg PO once Route: PO; km8 02:32 Follow up: Response: No adverse reaction km8 00:23 Drug: vancoMYCIN IVPB 1 grams IVPB once over 2 hrs Route: IVPB; Infused Over: 2 hrs; bm8 Site: right antecubital; 02:32 Follow up: IV Status: Completed infusion; IV Intake: 250ml km8 00:44 Drug: Lidocaine Infiltration (1 %) 10 ml 20 ml Infiltration once; to bedside {Note: km8 administered by ALMITA Adams.} Volume: 20 ml; Route: Infiltration; 02:32 Follow up: Response: No adverse reaction km8 Medication: 06/14 23:01 VIS not applicable for this client. km8 Intake: 06/15 00:15 IV: 500ml; Total: 500ml. km8 02:32 IV: 250ml; Total: 750ml. km8 Output: 02:39 Urine: 275ml (Voided); Total: 275ml. km8 Outcome: 01:10 ER care complete, transfer ordered by MD. cp 03:56 Transferred by ground EMS to other acute care facility: [facility]. Transfer km8 form completed. 03:56 Condition: stable 03:56 Instructed on the need for transfer, Demonstrated understanding of instructions, 04:22 Patient left the ED. km8 Signatures: Dispatcher [employer] EDMS Darshan Acharya PA PA cp Bryson, James, RN RN jb4 Melvi Ramirez RN RN 3 Imani Tenorio Rosalinda Giles rv1 Princess Umaña RN RN km8 Jordon Tang RN RN bm8 Corrections: (The following items were deleted from the chart) 01:01 00:33 Initiated transfer to [facility] spoke with wm wm 03:32 00:33 Initiated transfer to [facility] spoke with Omkar [facility] 03:55 03:53 Reassessment: Patient appears in no apparent distress at this time. No changes jb4 from previously documented assessment. Patient and/or family updated on plan of care and expected duration. Pain level reassessed. Patient is alert, oriented x 3, equal unlabored respirations, skin warm/dry/pink. report called to BETO Jade at [facility]. jb4
--- NOTE | 2023-06-16 01:11 | EDPHYS ---
Physician Documentation [facility] Name: Christopher Le Age: 72 yrs Sex: Male : 1950 Arrival Date: 06/15/2023 Time: 22:25 Bed 2 Private MD: ED Physician Facundo Ribeiro HPI: 06/14 22:45 This 72 yrs old Male presents to ER via EMS with complaints of Knee Pain - Right. cp 22:45 The patient presents with confusion. cp 22:45 Onset: The symptoms/episode began/occurred today, sometime after lunch as reported by cp . Possible causes: recent head injury from fall. Associated signs and symptoms: Pertinent positives: weakness, fever, right knee pain, Pertinent negatives: abdominal pain, chest pain, diaphoresis, diarrhea, vomiting. Current symptoms: In the emergency department the patient's symptoms are unchanged from the initial presentation, despite EMS interventions. Patient's baseline: Neuro: alert and fully oriented, Motor: no deficits, Ambulation: walks without assistance, Speech: normal. Patient with reported right knee replacement surgery in April 2023 at [facility] w/o complication. Patient reportedly fell several days ago landing on knees and striking head. Did not go to hospital for evaluation but was seen by pcp who also examined right knee surgical site. Historical: - Allergies: 23:01 No Known Allergies; km8 - Home Meds: 06/15 00:35 gabapentin 600 mg Oral tab twice a day [Active]; olmesartan 20 mg oral tablet 1 tab km8 daily [Active]; buprenorphine-naloxone 8-2 mg sublingual film 1 film BID [Active]; ropinirole 2 mg Oral tab 1 tab every day at bedtime [Active]; duloxetine 60 mg Oral cpDR 1 cap once daily [Active]; ezetimibe 10 mg Oral tab 1 tab once daily [Active]; rosuvastatin 5 mg oral tablet 1 tab every other day [Active]; aspirin 81 mg oral capsule 1 cap 2 times per day [Active]; Cyclosporine opthalmic eye drops 0.05% twice a day [Active]; - PMHx: 06/14 23:01 Chronic pain; Hypertensive disorder; km8 - PSHx: 23:01 right knee replacement (Hypertensive disorder); km8 - Immunization history:: Client reports receiving the 2nd dose of the Covid vaccine, Flu vaccine is not up to date. - Social history:: Smoking status: Patient denies any tobacco usage or history of. Patient/guardian denies using alcohol, street drugs. ROS: 22:48 Constitutional: Positive for fever, cp 22:48 Abdomen/GI: Negative for abdominal pain, cp 22:48 MS/extremity: Positive for erythema, pain, swelling, tenderness, of the right knee, 22:48 Neuro: Positive for altered mental status, weakness, Negative for headache, cp 22:48 Eyes: Negative for injury, pain, redness, and discharge, cp 22:48 ENT: Negative for ear pain, sore throat, difficulty swallowing, difficulty handling secretions, 22:48 Cardiovascular: Negative for chest pain, 22:48 Respiratory: Negative for cough, shortness of breath, wheezing, 22:48 All other systems are negative, Exam: 22:55 Constitutional: The patient appears in no acute distress, alert, awake, cp non-diaphoretic, non-toxic, well developed, well nourished, 22:55 Head/face: Noted is ecchymosis, that is mild, of the right cheek, swelling, that is cp mild, of the right cheek, 22:55 Eyes: Pupils: equal, round, and reactive to light and accomodation, Extraocular movements: intact throughout, Conjunctiva: normal, no exudate, no injection, Sclera: no appreciated abnormality, Lids and lashes: appear normal, bilaterally, 22:55 ENT: External ear(s): are unremarkable, Nose: is normal, Mouth: Lips: dry, Oral mucosa: pink and intact, moist, Posterior pharynx: Airway: no evidence of obstruction, patent, 22:55 Chest/axilla: Inspection: normal, Palpation: is normal, no crepitus, no tenderness, 22:55 Cardiovascular: Rate: tachycardic, Rhythm: regular, Edema: ankle edema, that is mild, JVD: is not appreciated, 22:55 Respiratory: the patient does not display signs of respiratory distress, Respirations: normal, no use of accessory muscles, no retractions, labored breathing, is not present, Breath sounds: are clear throughout, no decreased breath sounds, no stridor, no wheezing, 22:55 Abdomen/GI: Inspection: abdomen appears normal, Bowel sounds: active, all quadrants, 22:55 Back: pain, is absent, ROM is normal, cp 22:55 Musculoskeletal/extremity: Extremities: noted in the right knee: swelling, tenderness, cp overlying skin warm to touch with erythema, incision appears w/o dehiscence and no drainage expressed, moderate pain with passive ROM of right knee, Pulses: noted to be 2+ in the right dorsalis pedis artery, 22:55 Neuro: Orientation: to person, place, Mentation: able to follow commands, slow to respond, Motor: moves all fours, no focal deficits, Vital Signs: 22:30 BP 157 / 67; Pulse 100; Resp 18; Temp 100.5(O); Pulse Ox 98% on R/A; Weight 80.74 kg km (R); Height 5 ft. 10 in. (R); 22:45 BP 157 / 64; Pulse 101; Resp 18; Pulse Ox 100% on R/A; 8 23:30 BP 133 / 55; Pulse 93; Resp 18; Pulse Ox 100% on R/A; [facility] 06/15 00:00 BP 147 / 61; Pulse 107; Resp 20; Pulse Ox 100% on R/A; jb4 01:11 BP 140 / 62; Pulse 95; Resp 16; Pulse Ox 97% on R/A; km8 01:30 BP 148 / 64; Pulse 103; Resp 16; Pulse Ox 100% on R/A; km8 02:00 BP 120 / 92; Pulse 101; Resp 16; Pulse Ox 100% on R/A; km8 02:30 BP 134 / 63; Pulse 99; Resp 16; Pulse Ox 100% on R/A; jb4 02:38 Temp 99.9(O); 8 03:00 BP 152 / 53; Pulse 95; Resp 16; Pulse Ox 100% on R/A; jb4 03:30 BP 162 / 80; Pulse 91; Resp 16; Pulse Ox 97% on R/A; 4 06/14 22:30 Body Mass Index 25.54 (80.74 kg, 177.8 cm) [facility] Coma Score: 06/14 22:30 Eye Response: to voice(3). Motor Response: obeys commands(6). Verbal Response: [facility] oriented(5). Total: 14. Procedures: 06/15 02:15 Joint Treatment: Aspiration of right knee using 22 gauge spinal needle. Removed bloody cp fluid, Specimen sent to lab. Dressed with 4x4s, yves wrap Patient tolerated well. MDM: 06/14 22:29 Patient medically screened. 06/15 02:15 Data reviewed: vital signs, nurses notes, lab test result(s), EKG, radiologic studies, cp CT scan, plain films, I have discussed the patient's presentation/case with the attending Emergency Department Physician; and as a result, I will transfer patient. 02:15 I considered the following discharge prescriptions or medication management in the emergency department Medications were administered in the Emergency Department. See MAR. Independent interpretation of the following test(s) in the Emergency Department EKG: See my EKG interpretation above X-Ray: My interpretation is images of right knee negative for fracture. 02:35 ED course: VSS. Consult with DR Guadarrama \T\ [facility], will accept patient as transfer after discussion. 06/14 22:36 Order name: Urinalysis W/Microscopic; Complete Time: 02:01 06/14 22:36 Order name: SARS RAPID; Complete Time: 02: 06/14 22:36 Order name: Influenza Screen (a \T\ B); Complete Time: 02: 06/14 22:36 Order name: Blood Culture Adult (2) 06/14 22:36 Order name: CBC with Diff; Complete Time: 02: 06/14 23:36 Interpretation: Normal except: WBC 13.60; RBC 2.85; HGB 8.6; HCT 25.6; PLT 410; HILL% cp 90.3; LYM% 2.8; NEUT A 12.3; LYMA 0.4. 06/14 22:36 Order name: CMP; Complete Time: 23:33 06/14 23:36 Interpretation: Normal except: NA 135; GLUC 139; BUN 19; ALK 149; GLOB 4.1; A/G 0.9. 06/14 22:36 Order name: Lactate w/ 2H reflex if indic.; Complete Time: 23:33 06/14 22:36 Order name: Protime (+inr); Complete Time: 23:33 06/14 22:36 Order name: Ptt, Activated; Complete Time: 23:33 06/14 22:36 Order name: CRP; Complete Time: 23:33 06/14 23:37 Interpretation: Abnormal: C-REACTIVE PROT 13.30. cp 06/14 22:53 Order name: Glucose, Ancillary Testing; Complete Time: 23:33 EDMS 06/14 23:24 Order name: Manual Differential; Complete Time: 02:01 EDMS 06/15 01:14 Order name: Body Fluid Cell Count; Complete Time: 02:32 EDMS 06/15 01:14 Order name: Body Fluid Crystals; Complete Time: 02:01 EDMS 06/15 01:14 Order name: Body Fluid Culture EDRI 06/14 22:36 Order name: CT Head C Spine cp 06/14 22:36 Order name: XRAY Chest (1 view) cp 06/14 22:36 Order name: US Extremity Venous Unilateral Ltd cp 06/14 22:47 Order name: XRAY Pelvis cp 06/14 22:47 Order name: XRAY Knee RIGHT 3 view cp 06/14 22:47 Order name: XRAY Hip RIGHT 2 view cp 06/14 22:36 Order name: EKG; Complete Time: 22:37 cp 06/14 22:36 Order name: Accucheck; Complete Time: 23:01 cp 06/14 22:36 Order name: Cardiac monitoring; Complete Time: 22:37 cp 06/14 22:36 Order name: EKG - Nurse/Tech; Complete Time: 23:02 cp 06/14 22:36 Order name: IV Saline Lock - Large Bore; Complete Time: 22:37 cp 06/14 22:36 Order name: Labs collected and sent; Complete Time: 23:02 cp 06/14 22:36 Order name: O2 Per Protocol; Complete Time: 23:02 cp 06/14 22:36 Order name: O2 Sat Monitoring; Complete Time: 23:02 cp 06/14 22:36 Order name: Vital Signs; Complete Time: 23:15 cp EC/24 22:47 Rate is 100 beats/min. Rhythm is regular. NV interval is normal. QRS interval is cp prolonged at 102 msec. QT interval is normal. T waves are Inverted in lead aVR. Interpreted by me. Reviewed by me. Administered Medications: 23:15 Drug: NS 0.9% IV 500 ml IV at 500 ml/hr continuous Route: IV; Rate: 500 ml/hr; Site: [facility] right antecubital; 06/15 00:15 Follow up: IV Status: Completed infusion; IV Intake: 500ml 00:18 Drug: Acetaminophen PO 1000 mg PO once Route: PO; 02:32 Follow up: Response: No adverse reaction 00:23 Drug: vancoMYCIN IVPB 1 grams IVPB once over 2 hrs Route: IVPB; Infused Over: 2 hrs; bm8 Site: right antecubital; 02:32 Follow up: IV Status: Completed infusion; IV Intake: 250ml 00:44 Drug: Lidocaine Infiltration (1 %) 10 ml 20 ml Infiltration once; to bedside {Note: km8 administered by ALMITA Adams.} Volume: 20 ml; Route: Infiltration; 02:32 Follow up: Response: No adverse reaction Disposition: 04:48 Co-signature as Attending Physician, Facundo Ribeiro MD I agree with the assessment and rn plan of care. I reviewed the patient's care provided by Advanced Practice Provider \T\ agree w/ the diagnosis \T\ care plan. I personally saw the pt \T\ performed a substantive portion of the visit, incldng all aspects of the (History/Exam/Medical Decision Making). Disposition Summary: 06/16/23 01:10 Transfer Ordered Notes: Transfer Location: [facility] cp Reason: Higher level of care cp Condition: Stable cp Problem: new cp Symptoms: have improved cp Accepting Physician: Doctor(06/16/23 04:22) km8 Diagnosis - Cellulitis of right lower limb cp - Altered mental status, unspecified cp - Anemia in other chronic diseases classified elsewhere cp Forms: - Medication Reconciliation Form cp - SBAR form cp Signatures: Dispatcher [employer] EDFacundo Eckert MD MD rn Page, Corey, PA PA cp Princess Umaña RN RN km8 Jordon Tang RN RN bm8 Corrections: (The following items were deleted from the chart) 00:23 06/14 22:36 Yi ordered. cp km8 06/15 01:10 01:10 Doctor cp cp 02:02 01:10 Doctor cp cp 02:40 06/14 23:07 ECG was reviewed by the Attending Physician. cp cp 06/15 02:40 06/14 23:07 Rate is 74 beats/min. Rhythm is regular. NV interval is normal. QRS cp interval is normal. QT interval is normal. T waves are Inverted in leads III, aVR. Interpreted by me. Reviewed by me. demetrio 06/15 04:22 02:02 Doctor demetrio km8
[2023-06-16 01:21] LABS: Band Neutrophils 4 % (0-1); Blood Morphology Comment NOT SEEN (NOT SEEN); Differential Total Cells Count 100; Eosinophils 1 % (0-3); Lymphocytes 3 % (15-42); Monocytes 7 % (0-10); Platelet Estimate ADEQ; Segmented Neutrophils 83 % (40-80)
[2023-06-16 01:33] LABS: Specific Gravity 1.023 (1.005-1.030); Sqamous Epithelial <5 /HPF (None Seen); Urine Bacteria None Seen /HPF (<20); Urine Bilirubin NEGATIVE (Negative); Urine Blood Negative (Negative); Urine Clarity Clear (Clear); Urine Color Light-Yellow (Yellow); Urine Culture Reflex Order NOT NEEDED; Urine Glucose NEGATIVE (Negative); Urine Ketones NEGATIVE (Negative); Urine Micro Reflex YN NO BILL MICROSCOPIC; Urine Mucus Slight /HPF (None Seen); Urine Nitrite NEGATIVE (Negative); Urine Protein NEGATIVE (Negative); Urine RBC None Seen /HPF (None Seen); Urine Urobilinogen Normal (Normal); Urine WBC <5 /HPF (<5)
[2023-06-16 01:55] LABS: Appearance VERY TURBID (CLEAR); Body Fluid Source SYNOVIAL; Color of Supernate Not Xanthochromic (Not Xantho); Color of fluid Red (COLORLESS); Tube # SINGLE
[2023-06-16 02:04] LABS: Body Fluid WBC 64428 /mm^3
[2023-06-16 02:06] LABS: Body Fluid Lymphocytes 4 %; Fluid Total Cells Count 100
[2023-06-16 04:45] VITALS: BP 162/80; TEMP 99.9; O2SAT 97
--- NOTE | 2023-06-16 14:00 | RAD REPORT ---
EXAM DESCRIPTION: XR Pelvis, 1 View CLINICAL HISTORY: The patient is 72 years old and is Male; fall Bed Name: 2 TECHNIQUE: Frontal view of the pelvis. COMPARISON: No relevant prior studies available. FINDINGS: BONES/JOINTS: Cortical thickening and expansion demonstrated in the left inferior pubic ramus and acetabulum, most consistent with provided history of Paget's disease. Mild degenerative changes of the bilateral hips. Multilevel spondylosis involving the visualized lumbar spine. No acute fracture. No subluxation or dislocation. SOFT TISSUES: Unremarkable VASCULATURE: Phleboliths noted in the right hemipelvis. GASTROINTESTINAL TRACT: Moderate partially visualized stool burden with visualized bowel gas patter n appears nonobstructive. IMPRESSION: 1. No acute findings in the pelvis. 2. Paget's disease of the left hemipelvis. Electronically signed by: Ehsan Glasgow MD 06/16/2023 12:10 AM CDT Due to temporary technical issues with the PACS/Fluency reporting system, reports are being signed by the in house radiologist without review as a courtesy to ensure prompt reporting. The interpreting r adiologist is fully responsible for the content of the report.
--- NOTE | 2023-06-16 14:02 | RAD REPORT ---
EXAM DESCRIPTION: US Duplex Right Lower Extremity Veins CLINICAL HISTORY: The patient is 72 years old and is Male; Pain;Swelling Bed Name: 2 TECHNIQUE: Real-time duplex ultrasound scan of the right lower extremity veins integrating B-mode tw o-dimensional vascular structure, Doppler spectral analysis, color flow Doppler imaging and compressi on. COMPARISON: No relevant prior studies available. FINDINGS: DEEP VEINS: Unremarkable No DVT in the visualized common femoral, femoral, proximal de ep femoral or popliteal veins. The veins demonstrate normal color flow, are normally compressible, with normal phasic flow and/or augmentation response. SUPERFICIAL VEINS: Unremarkable No thrombus in the visualized great saphenous vein. SOFT TISSUES: Mild subcutaneous edema demonstrated in the right calf. IMPRESSION: 1. No venous thrombus identified in the right lower extremity veins. 2. Mild right calf edema. Electronically signed by: Ehsan Glasgow MD 06/16/2023 12:35 AM CDT Due to temporary technical issues with the PACS/Fluency reporting system, reports are being signed by the in house radiologist without review as a courtesy to ensure prompt reporting. The interpreting r adiologist is fully responsible for the content of the report.
--- NOTE | 2023-06-16 14:03 | RAD REPORT ---
EXAM DESCRIPTION: XR Chest, 1 View CLINICAL HISTORY: The patient is 72 years old and is Male; FEVER Bed Name: 2 TECHNIQUE: Frontal view of the chest. COMPARISON: No relevant prior studies available. FINDINGS: LUNGS: No discrete focal consolidation. PLEURAL SPACE: No appreciable pleural effusion or pneumothorax. MEDIASTINUM: Normal cardiomediastinal contours, allowing for technique and positioning. BONES/JOINTS: No acute osseous abnormality. Degenerative changes of the bilateral shoulders. IMPRESSION: No acute cardiopulmonary abnormality. Electronically signed by: Ehsan Glasgow MD 06/16/2023 12:06 AM CDT Due to temporary technical issues with the PACS/Fluency reporting system, reports are being signed by the in house radiologist without review as a courtesy to ensure prompt reporting. The interpreting r adiologist is fully responsible for the content of the report.
--- NOTE | 2023-06-16 14:04 | RAD REPORT ---
EXAM DESCRIPTION: Hip Right 2 View CLINICAL HISTORY: 72-year-old male with pain. TECHNIQUE: 2 views LEFT hip were obtained in AP, lateral projections COMPARISON: None. FINDINGS: There is no fracture or dislocation. The joint spaces are preserved. No soft tissue abnorm alities are seen. Incidentally noted, cortical thickening with increased trabeculation identified inv olving the incompletely visualized left inferior pubic ramus and acetabulum raising the possibility o f Paget's disease. IMPRESSION: No acute radiographic abnormality. Electronically signed by: Tila Hill MD 06/16/2023 12:06 AM CDT Due to temporary technical issues with the PACS/Fluency reporting system, reports are being signed by the in house radiologist without review as a courtesy to ensure prompt reporting. The interpreting r adiologist is fully responsible for the content of the report.
--- NOTE | 2023-06-16 14:05 | RAD REPORT ---
EXAM DESCRIPTION: Knee Right 3 View XR Right Knee 3 Views 06/15/2023 at 11: 31 PM CLINICAL HISTORY: Pain, Swelling COMPARISON: Right tibia-fibula 2 views 05/03/2021 TECHNIQUE: Right Knee 3 Views FINDINGS: No fracture or dislocation. Right total knee prosthesis is new from 05/03/2021. No significant sclerotic/lytic bone lesion. Lucency between right tibial prosthetic component's inferior aspect and surrounding bone cement measu ring about 8 mm in craniocaudal dimension on AP view. Osteopenia or diffuse decreased bone density. Soft tissues unremarkable. IMPRESSION: 1. Right total knee arthroplasty. 2. Periprosthetic lucency between right tibial prosthetic component's inferior-most aspect and surrou nding bone cement. No old exam is available for comparison. Possibility of prosthetic loosening cannot be ruled out. 3. Moderate diffuse osteopenia. Electronically signed by: Valentín Estrada MD 06/16/2023 12:55 AM CDT Due to temporary technical issues with the PACS/Fluency reporting system, reports are being signed by the in house radiologist without review as a courtesy to ensure prompt reporting. The interpreting r adiologist is fully responsible for the content of the report.
--- NOTE | 2023-06-16 14:14 | EKG ---
Test Date: 2023-06-15 Test Time: 22:40:10 Videogame Designer: RV MEASUREMENT RESULTS: Intervals: Rate: 100 [place]: 132 QRSD: 102 QT: 326 QTc: 420 [place]: P: 68 [place]: 132 QRS: 58 T: 66 INTERPRETIVE STATEMENTS: Normal sinus rhythm Normal ECG Compared to ECG 07/21/2021 17:03:19 No significant changes Electronically Signed On 06-16-23 14:13:25 CDT by Gordy Alvarez
--- NOTE | 2023-06-16 14:18 | RAD REPORT ---
EXAM DESCRIPTION: CT Head and Cervical Spine Without Intravenous Contrast CLINICAL HISTORY: The patient is 72 years old and is Male; MENTAL STATUS CHANGE TECHNIQUE: Axial computed tomography images of the head/brain and cervical spine without intravenous contrast. Sagittal and coronal reformatted images were created and reviewed. This CT exam was pe rformed using one or more of the following dose reduction techniques: automated exposure control, a djustment of the mA and/or kV according to patient size, and/or use of iterative reconstruction techn ique. COMPARISON: No relevant prior studies available. FINDINGS: Brain: Unremarkable. No hemorrhage. No significant white matter disease. No edema. Ventricles: Unremarkable. No ventriculomegaly. Skull: No acute fracture. Sinuses: Unremarkable as visualized. No acute sinusitis. Mastoid air cells: Unremarkable as visualized. No mastoid effusion. Vertebrae: See below. Discs/spinal canal/neural foramina: Multilevel disc space narrowing with degenerative endplate ch anges most prominent at C6-7. Soft tissues: Right frontal scalp swelling. IMPRESSION: No acute intracranial abnormality. No acute findings in the cervical spine. Electronically signed by: Pablo Steele MD 06/15/2023 11:43 PM CDT Due to temporary technical issues with the PACS/Fluency reporting system, reports are being signed by the in house radiologist without review as a courtesy to ensure prompt reporting. The interpreting r adiologist is fully responsible for the content of the report.
== END ==
LOC: ER 22:25
PROC: 0S9C3ZX Drainage of Right Knee Joint, Percutaneous Approach, Diagnostic (ICD-10-PCS; principal; 2023-06-15)
DX: L03.115 Cellulitis of right lower limb (principal); R41.82 Altered mental status, unspecified; D64.9 Anemia, unspecified; I10 Essential (primary) hypertension; Z96.651 Presence of right artificial knee joint; Z11.52 Encounter for screening for COVID-19; Z79.82 Long term (current) use of aspirin
CPT/HCPCS: 93005; 87040 ×2; 85025; 36415; 87205; 85610; 82947; 83605; 85730; 80053; 86140; 87804 ×2; 70450; 72125; 71045; 72170; 73502; 73562; 93971; 87811; 10021; J7040; 96361; 96365; 96366; 99285

== ENCOUNTER 2023-06-27 20:35 | Emergency (ER) | payer OTHER ==
[2023-06-27] MEDS ORDERED: NA CHLORIDE 0.9% 1,000 ML ONE (21:35)
[2023-06-27] MEDS ORDERED: NA CHLORIDE 0.9% 250 ML ONE (21:35)
[2023-06-27] MEDS ORDERED: VANCOMYCIN 1 GM/VIAL ONE (21:35)
[2023-06-27 21:47] LABS: Absolute Basophils 0.1 K/uL (0-0.5); Absolute Eosinophils 0.2 K/uL (0-0.5); Absolute Lymphocytes (CBC) 1.3 K/uL (0.7-4.9); Absolute Monocytes 1.4 K/uL (0.1-1.3); Absolute Neutrophil 10.4 K/uL (1.8-8.0); Basophils % 0.7 % (0-1.3); Eosinophils % 1.6 % (0-4.4); Hematocrit 22.5 % (39.6-49.0); Hemoglobin 7.4 g/dL (13.6-17.9); Lymphocytes % 9.5 % (15.3-44.8); MCH 28.5 pg (27.0-35.0); MCHC 33.1 g/dL (32.0-36.0); MPV 6.7 fL (7.6-11.3); Monocytes % 10.6 % (3.3-12.3); Neutrophils % 77.6 % (41.7-73.7); Platelets 717 thou/uL (152-406); RBC Red Blood Cell Count 2.61 M/uL (4.33-5.43); Red Cell Distribution Width 15.4 % (12.1-15.2)
[2023-06-27 21:52] LABS: PTT, Activated Partial Thromb 33.4 SECONDS (24.3-36.9)
[2023-06-27 21:53] LABS: PT Prothrombin Time 14.8 SECONDS (9.5-12.5); Protime INR 1.36
[2023-06-27 22:11] LABS: Albumin 2.8 g/dL (3.4-5.0); Albumin/Globulin Ratio 0.6 (1.1-1.8); Anion Gap 10.1 mEq/L (5.0-15.0); Bilirubin Total 0.4 mg/dL (0.2-1.0); Globulin 4.7 g/dL (2.3-3.5); Potassium 4.1 mEq/L (3.5-5.1); Protein, Total 7.5 g/dL (6.4-8.2)
--- NOTE | 2023-06-27 22:47 | EDPHYS ---
Physician Documentation [facility] Name: Christopher Le Age: 72 yrs Sex: Male : 1950 Arrival Date: 06/27/2023 Time: 20:35 Bed 15 Private MD: ED Physician Al Nieto HPI: 06/26 23:51 This 72 yrs old Male presents to ER via EMS with complaints of shivering, leg redness. rt 23:51 Patient had a recent right knee replacement surgery, subsequently had infection, was rt replaced with an antibiotic disc at [facility] per his report. Tonight, the patient developed shaking, weakness, fevers consistent with his previous episode with infected joint. Patient was found have Staph aureus positive blood cultures at that time. Is currently taking antibiotics. Denies other acute complaints at this time, symptoms are moderate in severity, no other aggravating or alleviating factors.. Historical: - Allergies: 20:47 No Known Allergies; nj1 - Home Meds: 22:59 aspirin 81 mg Oral capsule 1 cap 2 times per day [Active]; buprenorphine-naloxone 8-2 tl4 mg sublingual film 1 film BID [Active]; Cyclosporine opthalmic eye drops 0.05% twice a day [Active]; duloxetine 60 mg Oral cpDR 1 cap once daily [Active]; rosuvastatin 5 mg Oral tablet 1 tab Every other day [Active]; ropinirole 2 mg Oral tab 1 tab every day at bedtime [Active]; olmesartan 20 mg Oral tablet 1 tab daily [Active]; gabapentin 600 mg Oral tab twice a day [Active]; ezetimibe 10 mg Oral tab 1 tab once daily [Active]; - PMHx: 20:47 Chronic pain; Hypertensive disorder; Restless legs syndrome (Unknown); nj1 - PSHx: 20:47 Right knee replacement (en); nj1 - Immunization history:: Client reports receiving the 2nd dose of the Covid vaccine. - Infectious Disease History:: Denies. - Social history:: Smoking status: Patient denies any tobacco usage or history of. - Family history:: not pertinent. ROS: 06/27 00:08 Cardiovascular: Negative for chest pain, palpitations, and edema, Respiratory: Negative rt for shortness of breath, cough, wheezing, and pleuritic chest pain, Abdomen/GI: Negative for abdominal pain, nausea, vomiting, diarrhea, and constipation, Constitutional: Positive for body aches, chills, fever, MS/extremity: Positive for erythema, swelling, warmth, Exam: 00:08 Constitutional: This is a well developed, well nourished patient who is awake, alert, rt and in no acute distress. Head/Face: Normocephalic, atraumatic. Chest/axilla: Normal chest wall appearance and motion. Nontender with no deformity. No lesions are appreciated. Cardiovascular: Regular rate and rhythm with a normal S1 and S2. No gallops, murmurs, or rubs. Normal PMI, no JVD. No pulse deficits. Respiratory: Lungs have equal breath sounds bilaterally, clear to auscultation and percussion. No rales, rhonchi or wheezes noted. No increased work of breathing, no retractions or nasal flaring. Abdomen/GI: Soft, non-tender, with normal bowel sounds. No distension or tympany. No guarding or rebound. No evidence of tenderness throughout. 00:08 ECG was reviewed by the Attending Physician. 00:08 Musculoskeletal/extremity: Warmth, swelling, erythema to the right knee, momo in place, pulses, motor, sensation intact. Vital Signs: 05 20:35 BP 162 / 80; Pulse 89; Resp 18; Temp 99.9(A); Pulse Ox 100% on R/A; Weight 77.11 kg nj1 (R); Height 5 ft. 10 in. ; 21:00 BP 172 / 64; Pulse 87; Resp 19; Pulse Ox 98% on R/A; tl4 22:00 BP 146 / 72; Pulse 84; Resp 16; Pulse Ox 98% ; tl4 04/06 00:02 BP 120 / 71; Pulse 73; Resp 16; Pulse Ox 99% on R/A; Pain 8/10; tl4 01:19 BP 192 / 72; Pulse 90; Resp 17; Pulse Ox 100% on 3 lpm NC; ha1 01:40 BP 166 / 63; Pulse 84; Resp 17 S; Pulse Ox 100% on R/A; ha1 03:16 BP 148 / 95; Pulse 75; Resp 18 S; Pulse Ox 100% on R/A; jw7 03:36 BP 159 / 77; Pulse 86; Resp 21 S; Pulse Ox 98% on R/A; jw7 04:30 BP 188 / 98; Pulse 62; Resp 18 S; Pulse Ox 100% on R/A; jw7 06/26 20:35 Body Mass Index 24.39 (77.11 kg, 177.8 cm) nj1 06/27 00:02 Pain Scale: Adult tl4 MDM: 06/26 20:43 Patient medically screened. rt 06/27 01:46 Differential Diagnosis sepsis, Surgical site infection. Data reviewed: vital signs, rt nurses notes, lab test result(s). Consideration of Admission/Observation Given recent surgery, patient requires transfer to where his surgeon is. I considered the following discharge prescriptions or medication management in the emergency department Medications were administered in the Emergency Department. See MAR. Care significantly affected by the following chronic conditions: Restless leg syndrome. Post IV fluid administration reassessment for Sepsis: Client not prescribed the 30 mL/kg IVF due to: Not in septic shock Focused assessment performed: June 28, 2023 at 01:00 Capillary refill examination performed. Capillary refill noted to be brisk. Neuro: Patient's neurological exam has improved from previous exam. Counseling: I had a detailed discussion with the patient and/or guardian regarding the historical points, exam findings, and any diagnostic results supporting the discharge/admit diagnosis, lab results, the need to transfer to another facility. Response to treatment: the patient's symptoms have mildly improved after treatment. 03:51 ED course: Patient's private physician has privileges at [facility], the rt is requesting transfer to [facility] for continuity of care.. 06/26 20:52 Order name: Blood Culture Adult (2) rt 06/26 20:52 Order name: CBC with Diff; Complete Time: 22:13 rt 06/26 20:52 Order name: CMP; Complete Time: 22:13 rt 06/26 20:52 Order name: Lactate w/ 2H reflex if indic.; Complete Time: 22:13 rt 06/26 20:52 Order name: Protime (+inr); Complete Time: 22:13 rt 06/26 20:52 Order name: Ptt, Activated; Complete Time: 22:13 rt 06/26 22:00 Order name: Glucose, Ancillary Testing; Complete Time: 22:13 EDMS 06/26 20:52 Order name: EKG; Complete Time: 20:53 rt 06/26 20:52 Order name: Accucheck; Complete Time: 21:48 rt 06/26 20:52 Order name: Cardiac monitoring; Complete Time: 21:01 rt 06/26 20:52 Order name: EKG - Nurse/Tech; Complete Time: 22:07 rt 06/26 20:52 Order name: IV Saline Lock - Large Bore; Complete Time: 21:01 rt 06/26 20:52 Order name: Labs collected and sent; Complete Time: 21:32 rt 06/26 20:52 Order name: O2 Per Protocol; Complete Time: 21: rt 06/26 20:52 Order name: O2 Sat Monitoring; Complete Time: 21: rt 06/26 20:52 Order name: Vital Signs; Complete Time: 21:02 rt EC:08 Rate is 94 beats/min. Rhythm is regular, Normal Sinus Rhythm with No ectopy. QRS [place] rt is Normal. AR interval is normal. QRS interval is normal. QT interval is normal. No Q waves. T waves are Normal. No ST changes noted. Interpreted by me. Administered Medications: 06/26 21:41 Drug: NS 0.9% IV 1000 ml IV at 1 bolus Per protocol; 1000 mL bolus Route: IV; Rate: 1 tl4 bolus; Site: right antecubital; 06/27 00:00 Follow up: Response: No adverse reaction; IV Status: Completed infusion; IV Intake: tl4 1000ml 06/26 21:41 Drug: vancoMYCIN IVPB 1 grams IVPB once over 2 hrs Route: IVPB; Infused Over: 2 hrs; tl4 Site: right antecubital; 06/27 00:00 Follow up: Response: No adverse reaction; IV Status: Completed infusion; IV Intake: tl4 250ml Disposition Summary: 06/27/23 22:46 Transfer Ordered Notes: Reason: Private Physician at Transferring Hospital rt Condition: Stable rt Problem: an acute exacerbation rt Symptoms: have improved rt Transfer Location: [facility](06/28/23 03:51) rt Accepting Physician: (06/28/23 05:11) [email or web address] Diagnosis - Sepsis, unspecified organism rt - Cellulitis of right knee rt Forms: - Medication Reconciliation Form rt - SBAR form rt Signatures: Dispatcher [employer] EDMS Esther Florez RN RN jw7 Al Nieto MD MD rt Zaynab Dietrich RN RN nj1 Edouard Nj RN RN tl4 Corrections: (The following items were deleted from the chart) 06/26 20:53 20:53 BLOOD CULTURE*+BA.LAB.BRZ ordered. EDMS EDMS 20:53 20:53 CBC+H.LAB.BRZ ordered. EDMS EDMS 20:53 20:53 COMPREHENSIVE METABOLIC PANEL+C.LAB.BRZ ordered. EDMS EDMS 20:53 20:53 LACTATE+C.LAB.BRZ ordered. EDMS EDMS 20:53 20:53 PROTIME (+INR)+COAG.LAB.BRZ ordered. EDMS EDMS 20:53 20:53 PTT, ACTIVATED+COAG.LAB.BRZ ordered. EDMS EDMS 06/27 03:51 06/26 22:46 rt rt 06/27 03:51 06/26 22:46 Other Acute Care Facility rt rt 06/27 05:11 03:51 rt jw7
--- NOTE | 2023-06-27 22:47 | ER ---
Nurse's Notes [facility] Name: Christopher Le Age: 72 yrs Sex: Male : 1950 Arrival Date: 06/27/2023 Time: 20:35 Bed 15 Private MD: Diagnosis: Sepsis, unspecified organism;Cellulitis of right knee Presentation: 06/26 20:35 Chief complaint: EMS states: Full body tremors for 2 days, getting worse. A\\T\\Ox4 at nj1 times. Given 0.5mg Ativan IVP. Pt receiving abx infusions at home, had right knee replacement a couple weeks ago. 20:35 Method Of Arrival: EMS: [facility] ut1 20:35 Coronavirus screen: Vaccine status: Patient reports receiving the 2nd dose of the covid nj1 vaccine. Ebola Screen: Patient denies travel to an Ebola-affected area in the 21 days before illness onset. Initial Sepsis Screen: Does the patient meet any 2 criteria? No. Patient's initial sepsis screen is negative. Does the patient have a suspected source of infection? No. Patient's initial sepsis screen is negative. Risk Assessment: Do you want to hurt yourself or someone else? Patient reports no desire to harm self or others. Onset of symptoms was June 26, 2023. 20:35 Acuity: SARA 3 nj1 Historical: - Allergies: 20:47 No Known Allergies; nj1 - Home Meds: 22:59 aspirin 81 mg Oral capsule 1 cap 2 times per day [Active]; buprenorphine-naloxone 8-2 tl4 mg sublingual film 1 film BID [Active]; Cyclosporine opthalmic eye drops 0.05% twice a day [Active]; duloxetine 60 mg Oral cpDR 1 cap once daily [Active]; rosuvastatin 5 mg Oral tablet 1 tab Every other day [Active]; ropinirole 2 mg Oral tab 1 tab every day at bedtime [Active]; olmesartan 20 mg Oral tablet 1 tab daily [Active]; gabapentin 600 mg Oral tab twice a day [Active]; ezetimibe 10 mg Oral tab 1 tab once daily [Active]; - PMHx: 20:47 Chronic pain; Hypertensive disorder; Restless legs syndrome (Unknown); nj1 - PSHx: 20:47 Right knee replacement (en); nj1 - Immunization history:: Client reports receiving the 2nd dose of the Covid vaccine. - Infectious Disease History:: Denies. - Social history:: Smoking status: Patient denies any tobacco usage or history of. - Family history:: not pertinent. Screenin:57 [facility] ED Fall Risk Assessment (Adult) History of falling in the last 3 months, tl4 including since admission No falls in past 3 months (0 pts) Confusion or Disorientation Yes (5 pts) Intoxicated or Sedated No (0 pts) Impaired Gait No (0 pts) Mobility Assist Device Used No (0 pt) Altered Elimination No (0 pt) Score/Fall Risk Level 3 or more points = High Risk Oriented to surroundings, Maintained a safe environment, Educated pt \\T\\ family on fall prevention, incl call for assistance when getting out of bed, Assessed \\T\\ reinforced patient's understanding of fall precautions, Provided non-skid footwear, Hourly rounding (assess needs \\T\\ fall precautionary measures) done, Used ambulatory aids as needed (educated on \\T\\ assisted with), Used gait belt as appropriate. Abuse screen: Denies threats or abuse. Denies injuries from another. Nutritional screening: No deficits noted. Tuberculosis screening: No symptoms or risk factors identified. Assessment: 22:53 General: Appears uncomfortable, Behavior is restless. Pain: Denies pain. Neuro: Level tl4 of Consciousness is awake, obeys commands, Oriented to person, place, time, Moves all extremities. Pt has erratic movements of extremities x 4. Cardiovascular: Denies chest pain, palpitations, Capillary refill < 3 seconds Patient's skin is warm and dry. Respiratory: Airway is patent Respiratory effort is even, unlabored, Respiratory pattern is regular, symmetrical, Breath sounds are clear bilaterally. GI: No deficits noted. No signs and/or symptoms were reported involving the gastrointestinal system. : No deficits noted. No signs and/or symptoms were reported regarding the genitourinary system. EENT: No deficits noted. No signs and/or symptoms were reported regarding the EENT system. Derm: No deficits noted. No signs and/or symptoms reported regarding the dermatologic system. 06/27 00:00 General: Appears uncomfortable, Behavior is restless. Pain: Denies pain. Neuro: Level ha1 of Consciousness is awake, obeys commands, Oriented to person, place, time. Cardiovascular: Patient's skin is warm and dry. Respiratory: Airway is patent Respiratory effort is even, unlabored, Respiratory pattern is regular, symmetrical. GI: No signs and/or symptoms were reported involving the gastrointestinal system. Derm: redness of right knee. family member stated" he had surgery on the right knee and it got infected, has been on antibiotics for it". 01:00 Reassessment: Patient and/or family updated on plan of care and expected duration. Pain ha1 level reassessed. 02:00 Reassessment: Patient and/or family updated on plan of care and expected duration. Pain ha1 level reassessed. Respiratory: Airway is patent Respiratory effort is even, unlabored, Respiratory pattern is regular, symmetrical. 03:00 General: Appears in no apparent distress. uncomfortable, Behavior is calm, cooperative, jw7 appropriate for age. 03:00 Pain: Denies pain. Neuro: Level of Consciousness is awake, alert, obeys commands, jw7 Oriented to person, place, time, situation. Cardiovascular: Capillary refill < 3 seconds Clubbing of nail beds is absent JVD is absent Patient's skin is warm and dry. Respiratory: Airway is patent Trachea midline Respiratory effort is even, unlabored, Respiratory pattern is regular, symmetrical, Breath sounds are clear bilaterally. GI: No deficits noted. No signs and/or symptoms were reported involving the gastrointestinal system. : No deficits noted. No signs and/or symptoms were reported regarding the genitourinary system. EENT: No deficits noted. No signs and/or symptoms were reported regarding the EENT system. Derm: Skin is healthy with good turgor, Skin is dry, Skin is normal, Skin temperature is warm. Musculoskeletal: Circulation, motion, and sensation intact. Range of motion: limited in right knee. 04:00 Reassessment: Patient appears in no apparent distress at this time. Patient and/or jw7 family updated on plan of care and expected duration. Pain level reassessed. Patient is alert, oriented x 3, equal unlabored respirations, skin warm/dry/pink. 04:10 General: attempted to call report, no answer. jw7 04:40 General: Attempted to give report to receiving nurse, on hold for 15 minutes. Report jw7 given to BETO Estes. 05:10 Reassessment: Patient appears in no apparent distress at this time. Patient and/or jw7 family updated on plan of care and expected duration. Pain level reassessed. Patient is alert, oriented x 3, equal unlabored respirations, skin warm/dry/pink. Vital Signs: 06/26 20:35 BP 162 / 80; Pulse 89; Resp 18; Temp 99.9(A); Pulse Ox 100% on R/A; Weight 77.11 kg nj1 (R); Height 5 ft. 10 in. ; 21:00 BP 172 / 64; Pulse 87; Resp 19; Pulse Ox 98% on R/A; tl4 22:00 BP 146 / 72; Pulse 84; Resp 16; Pulse Ox 98% ; tl4 06/27 00:02 BP 120 / 71; Pulse 73; Resp 16; Pulse Ox 99% on R/A; Pain 8/10; tl4 01:19 BP 192 / 72; Pulse 90; Resp 17; Pulse Ox 100% on 3 lpm NC; ha1 01:40 BP 166 / 63; Pulse 84; Resp 17 S; Pulse Ox 100% on R/A; ha1 03:16 BP 148 / 95; Pulse 75; Resp 18 S; Pulse Ox 100% on R/A; jw7 03:36 BP 159 / 77; Pulse 86; Resp 21 S; Pulse Ox 98% on R/A; jw7 04:30 BP 188 / 98; Pulse 62; Resp 18 S; Pulse Ox 100% on R/A; jw7 06/26 20:35 Body Mass Index 24.39 (77.11 kg, 177.8 cm) nj1 06/27 00:02 Pain Scale: Adult tl4 ED Course: 06/26 20:38 Patient arrived in ED. ty 20:41 Al Nieto MD is Attending Physician. rt 20:47 Triage completed. nj1 21:01 Edouard Nj, BETO is Primary Nurse. tl4 21:32 Blood Culture Adult (2) Sent. tl4 21:32 CBC with Diff Sent. tl4 21:32 CMP Sent. tl4 21:32 Lactate w/ 2H reflex if indic. Sent. tl4 21:32 Protime (+inr) Sent. tl4 21:32 Ptt, Activated Sent. tl4 21:35 Initial lab(s) drawn, by me, sent to lab. First set of blood cultures drawn by , tl4 Second set of blood cultures drawn by me, EKG done, by ED staff, reviewed by Al Nieto MD. 22:48 Called [facility] for patient transfer to [facility], on hold ty for 16 minutes. Denied due Sepsis and no medical doctors at facility. 22:58 No provider procedures requiring assistance completed. Maintain EMS IV. Dressing tl4 intact. Good blood return noted. Site clean \\T\\ dry. Gauge \\T\\ site: 18g right AC. Patient transferred, IV remains in place. 22:58 Patient has correct armband on for positive identification. Placed in gown. Bed in low tl4 position. Call light in reach. Side rails up X2. Adult w/ patient. Provided Education on: ED process. Client placed on continuous cardiac and pulse oximetry monitoring. NIBP monitoring applied. sales store checker on. Door closed. Noise minimized. Lights dimmed. Moved to private room. Warm blanket given. 22:59 Arm band placed on. tl4 23:35 [facility] called to begin patient transfer, on hold 18 min. ty 06/27 00:00 Report received from BETO Nunn. ha1 00:40 [facility] called stated patient has privileges at [facility]. Advised to call back if ty not accepted. 00:45 [facility] contacted for patient transfer, spoke with Magaly. ty 01:52 Contacted [facility] regarding update on status of patient, advised waiting on provider ty at main long key location. 02:30 Contacted [facility] regarding update on status of patient, advised waiting on provider ty at main campus location. On hold for 18 minutes. 02:37 [facility] called regarding patient update, [facility] advised waiting on provider from [facility] ty confirm or deny acceptance. 03:14 Contacted by [facility] for [id number] (Ortho) advised will be contacted by hospitalist. ty 03:19 Contacted by [facility] for [id number] (Hospitalist). ty 03:30 Patient FaceSheet faxed for [id number] report phone number. ty 04:23 Warm blanket given. Cleaned of incontinence. One-on-one care X 15 minutes. jw7 04:25 Contacted [facility] for patient transport, all units are busy. ty 04:28 [facility] contacted for patient transport. ETA 20-25 minutes. ty Administered Medications: 06/26 21:41 Drug: NS 0.9% IV 1000 ml IV at 1 bolus Per protocol; 1000 mL bolus Route: IV; Rate: 1 tl4 bolus; Site: right antecubital; 06/27 00:00 Follow up: Response: No adverse reaction; IV Status: Completed infusion; IV Intake: tl4 1000ml 06/26 21:41 Drug: vancoMYCIN IVPB 1 grams IVPB once over 2 hrs Route: IVPB; Infused Over: 2 hrs; tl4 Site: right antecubital; 06/27 00:00 Follow up: Response: No adverse reaction; IV Status: Completed infusion; IV Intake: tl4 250ml Medication: 06/26 22:57 VIS not applicable for this client. tl4 Intake: 06/27 00:00 IV: 1000ml; Total: 1000ml. tl4 00:00 IV: 250ml; Total: 1250ml. tl4 Outcome: 06/26 22:46 ER care complete, transfer ordered by . rt 06/27 05:11 Transferred by ground EMS to [facility] Javier Condition: stable Instructed on the need for transfer, Demonstrated understanding of instructions, 05:11 Patient left the ED. jw Signatures: Esther Florez RN RN jw7 Emily Quinn, RN RN ha1 Al Nieto MD MD rt Zaynab Dietrich RN RN nj1 Edouard Nj RN RN tl4 Gael Stark Corrections: (The following items were deleted from the chart) 00:03 00:02 BP 116 / 89; Pulse 99bpm; Resp 16bpm; Pulse Ox 99% RA; Pain 8/10, Adult; tl4 tl4 00:14 05 23:35 [facility] called to begin patient transfer ty ty 06/27 02:44 01:52 Contacted [facility] regarding update on status of patient, advised waiting on ty provider at main long key locaton ty 03:18 02:30 Contacted [facility] regarding update on status of patient, advised waiting on ty provider at main long key location. On hold for ty 04:26 03:16 BP 148 / 95; Pulse 75bpm; Resp 18bpm; Spontaneous; Pulse Ox 100% 3 lpm Nasal jw7 Cannula; jw7 04:26 03:36 BP 159 / 77; Pulse 86bpm; Resp 21bpm; Spontaneous; Pulse Ox 98% 3 lpm Nasal jw7 Cannula; jw7 04:33 03:16 Reassessment: Patient appears in no apparent distress at this time. Patient jwJavier and/or family updated on plan of care and expected duration. Pain level reassessed. jw7 04:34 04:00 General: attempted to call report, no answer. jw7 jw7 04:35 04:34 General: attempted to call report, no answer, waited on hold for 8 mins. jwJavier jwJavier
[2023-06-28 12:22] VITALS: BP 188/98; TEMP 99.9; O2SAT 100
--- NOTE | 2023-06-30 12:49 | EKG ---
Test Date: 2023-06-27 Test Time: 21:54:48 Youth Worker: TL MEASUREMENT RESULTS: Intervals: Rate: 84 MT: 128 QRSD: 98 QT: 376 QTc: 444 [place]: P: 81 MT: 128 QRS: 67 T: 31 INTERPRETIVE STATEMENTS: Normal sinus rhythm with sinus arrhythmia Normal ECG Compared to ECG 06/15/2023 22:40:10 No significant changes Electronically Signed On 06-30-23 12:43:00 CDT by Gordy Alvarez
--- NOTE | 2023-06-30 12:49 | EKG ---
Test Date: 2023-06-27 Test Time: 21:55:20 Run Lead: TL MEASUREMENT RESULTS: Intervals: Rate: 94 MT: 126 QRSD: 96 QT: 368 QTc: 460 [place]: P: 74 MT: 126 QRS: 67 T: 37 INTERPRETIVE STATEMENTS: Normal sinus rhythm Normal ECG Compared to ECG 06/27/2023 21:54:48 Sinus arrhythmia no longer present Electronically Signed On 06-30-23 12:42:58 CDT by Gordy Alvarez
== END 2023-06-28 05:11 | disposition short-term general hospital (02) ==
LOC: ER 20:35
DX: L03.115 Cellulitis of right lower limb (principal); A41.9 Sepsis, unspecified organism; Z96.651 Presence of right artificial knee joint; I10 Essential (primary) hypertension; Z79.82 Long term (current) use of aspirin
CPT/HCPCS: 96365; 93005 ×2; 87040 ×2; 85025; 36415; 85610; 82947; 83605; 85730; 80053; 99285; 96366; J7050; J7030

== ENCOUNTER 2024-01-23 22:49 | Emergency (ER) | payer OTHER ==
[2024-01-23] MEDS ORDERED: NA CHLORIDE 0.9% 1,000 ML ONE (23:45)
[2024-01-24 00:17] LABS: Absolute Lymphocytes (CBC) 0.5 K/uL (0.7-4.9); Absolute Monocytes 0.7 K/uL (0.1-1.3); Basophils % 0.6 % (0-1.3); Eosinophils % 0.3 % (0-4.4); Hematocrit 26.6 % (39.6-49.0); Hemoglobin 8.7 g/dL (13.6-17.9); Lymphocytes % 15.2 % (15.3-44.8); MCH 28.2 pg (27.0-35.0); MCHC 32.8 g/dL (32.0-36.0); MCV 85.8 fL (80-100); MPV 7.2 fL (7.6-11.3); Monocytes % 20.9 % (3.3-12.3); Nucleated Red Blood Cells % 0.2 % (0-0); Platelets 342 thou/uL (152-406); Red Cell Distribution Width 15.9 % (12.1-15.2)
[2024-01-24 00:27] LABS: PT Prothrombin Time 13.1 SECONDS (9.4-12.5); Protime INR 1.18
[2024-01-24 00:36] LABS: SARS-CoV-2 Antigen CONTROL BLUE LINE VIS/BG OK; SARS-CoV-2 Antigen Rapid Res Positive (Negative)
[2024-01-24 00:40] LABS: ALT/SGPT 24 U/L (16-61); AST/SGOT 22 U/L (15-37); Albumin 3.3 g/dL (3.4-5.0); Albumin/Globulin Ratio 0.8 (1.1-1.8); Alkaline Phosphatase 119 U/L (45-117); Anion Gap 6.8 mEq/L (5.0-15.0); BUN Blood Urea Nitrogen 17 mg/dL (7-18); Bicarbonate 30 mEq/L (21-32); Bilirubin Total 0.2 mg/dL (0.2-1.0); Globulin 4.2 g/dL (2.3-3.5); Glomerular Filtration Rate 90 ml/min (=/>90); Glucose Level 149 mg/dL (74-106); Lipase 13 U/L (13-75); Magnesium 2.3 mg/dL (1.6-2.4); NT PRO-BNP 88 pg/mL (<125); Potassium 3.8 mEq/L (3.5-5.1); Protein, Total 7.5 g/dL (6.4-8.2); Sodium Level 136 mEq/L (136-145); Troponin High Sensitivity 7.5 pg/mL (<58.9)
[2024-01-24 00:48] LABS: Bilirubin Direct < 0.2 mg/dL (0-0.2)
--- NOTE | 2024-01-24 01:02 | ER ---
Nurse's Notes [facility] Name: Christopher Le Age: 73 yrs Sex: Male : 1950 Arrival Date: 01/23/2024 Time: 22:49 Bed 5 Private MD: Diagnosis: Effusion, right knee;Cellulitis and acute lymphangitis of other parts of limb-RIGHT LOWER EXTREMITY;Nausea with vomiting, unspecified;SARS-associated coronavirus as the cause of diseases classified elsewhere;Anemia, unspecified Presentation: 01/22 22:59 Chief complaint: EMS states: Pt brought in nausea and general feeling unwell x1 day. Pt dd2 had second Rt knee replacement x1 month ago and has experienced swelling since the surgery. Coronavirus screen: At this time, the client does not indicate any symptoms associated with coronavirus-19. Ebola Screen: No symptoms or risks identified at this time. Initial Sepsis Screen: Does the patient meet any 2 criteria? No. Patient's initial sepsis screen is negative. Does the patient have a suspected source of infection? No. Patient's initial sepsis screen is negative. Risk Assessment: Do you want to hurt yourself or someone else? Patient reports no desire to harm self or others. Onset of symptoms was January 22, 2024. Care prior to arrival: Medication(s) given: zofran 4 mg, IV initiated. 20 GA, in the right antecubital area. 22:59 Method Of Arrival: EMS: [facility] dd2 22:59 Acuity: SARA 3 dd2 Triage Assessment: 23:09 General: Appears ill, Behavior is calm, cooperative, appropriate for age. Pain: Denies dd2 pain. EENT: No deficits noted. No signs and/or symptoms were reported regarding the EENT system. Neuro: No deficits noted. Level of Consciousness is awake, alert, obeys commands, Oriented to person, place, time, situation, Appropriate for age. Cardiovascular: Denies chest pain, shortness of breath, Patient's skin is warm and dry. Respiratory: Airway is patent Respiratory effort is even, unlabored, Respiratory pattern is regular, symmetrical, Breath sounds are clear. GI: Abdomen is non-distended, Abd is soft and non tender Reports nausea. : No deficits noted. No signs and/or symptoms were reported regarding the genitourinary system. Derm: Skin is healthy with good turgor, Skin temperature is warm edema to Rt knee, warm to touch, redness noted along healing incision site. Musculoskeletal: Swelling present in right knee Denies pain in, right knee. Historical: - Allergies: 23:09 No Known Allergies; dd2 - PMHx: 23:09 Chronic pain; Hypertensive disorder; Restless Legs Syndrome (Unknown); dd2 - PSHx: 23:09 Right knee replacement; dd2 - Immunization history:: Adult Immunizations up to date. - Infectious Disease History:: Denies. - Social history:: Smoking status: Patient denies any tobacco usage or history of. - Family history:: not pertinent. Screenin:30 [facility] ED Fall Risk Assessment (Adult) History of falling in the last 3 months, dd2 including since admission No falls in past 3 months (0 pts) Confusion or Disorientation No (0 pts) Intoxicated or Sedated No (0 pts) Impaired Gait No (0 pts) Mobility Assist Device Used No (0 pt) Altered Elimination No (0 pt) Score/Fall Risk Level 0 - 2 = Low Risk Oriented to surroundings, Maintained a safe environment, Educated pt \T\ family on fall prevention, incl call for assistance when getting out of bed, Assessed \T\ reinforced patient's understanding of fall precautions, Hourly rounding (assess needs \T\ fall precautionary measures) done. Abuse screen: Denies threats or abuse. Nutritional screening: No deficits noted. Tuberculosis screening: No symptoms or risk factors identified. Assessment: 01/23 00:03 Reassessment: SEE TRIAGE ASSESSMENT FOR FULL ASSESSMENT. dd2 04:31 Reassessment: Patient is alert, oriented x 3, equal unlabored respirations, skin dd2 warm/dry/pink. Pt and spouse aware of pending transfer Patient denies pain at this time. Patient states feeling better. 07:50 Reassessment: Patient appears in no apparent distress at this time. Patient and/or hb family updated on plan of care and expected duration. Pain level reassessed. Patient is alert, oriented x 3, equal unlabored respirations, skin warm/dry/pink. 08:40 Reassessment: Report called to Hima PÉREZ at [facility]. hb Vital Signs: 01/22 22:59 BP 128 / 68; Pulse 58; Resp 16; Temp 97.8(O); Pulse Ox 99% on R/A; Weight 73.48 kg; dd2 Pain 0/10; 23:09 BP 114 / 58; Pulse 57; Resp 16; Temp 98.1(O); Pulse Ox 100% ; Pain 0/10; dd2 02 01:26 BP 129 / 60; Pulse 60; Resp 15; Pulse Ox 97% on R/A; Pain 0/10; dd2 02:23 BP 133 / 53; Pulse 61; Resp 16; Pulse Ox 100% ; Pain 0/10; dd2 03:30 BP 119 / 62; Pulse 54; Resp 16; Pulse Ox 100% ; dd2 04:30 BP 134 / 66; Pulse 59; Resp 16; Pulse Ox 100% ; dd2 06:30 BP 149 / 73; Pulse 82; Resp 16; Pulse Ox 100% ; dd2 07:50 BP 124 / 54; Pulse 70; Resp 16; Pulse Ox 99% on R/A; hb 09:00 BP 126 / 66; Pulse 72; Resp 15; Pulse Ox 99% on R/A; hb 01/22 22:59 Pain Scale: Adult dd2 23:09 Pain Scale: Adult dd2 01/23 01:26 Pain Scale: Adult dd2 02:23 Pain Scale: Adult dd2 Hong Coma Score: 01/22 23:30 Eye Response: spontaneous(4). Motor Response: obeys commands(6). Verbal Response: dd2 oriented(5). Total: 15. 01/23 09:00 Eye Response: spontaneous(4). Motor Response: obeys commands(6). Verbal Response: hb oriented(5). Total: 15. ED Course: 01/22 22:55 Patient arrived in ED. rv1 22:59 MADAI COSTA, RN is Primary Nurse. dd2 23:09 Triage completed. dd2 23:09 Arm band placed on right wrist. Patient placed in an exam room, on a stretcher, on dd2 pulse oximetry. 23:13 Darshan Lizama MD is Attending Physician. [facility] 23:30 Patient has correct armband on for positive identification. Bed in low position. Call dd2 light in reach. Side rails up X 1. Client placed on continuous cardiac and pulse oximetry monitoring. NIBP monitoring applied. manager clinic on. Door closed. Noise minimized. Warm blanket given. Pillow given. Verbal reassurance given. 23:30 Initial lab(s) drawn, by me, sent to lab. First set of blood cultures drawn by me, dd2 COVID swab sent to lab. Flu and/or RSV swab sent to lab. Patient maintains SpO2 saturation greater than 95% on room air. 23:30 No provider procedures requiring assistance completed. dd2 23:50 XRAY Chest (1 view) Sent. dd2 23:50 Maintain EMS IV. Dressing intact. Good blood return noted. Site clean \T\ dry. Gauge \T\ dd 2 site: 20G RAC. IV is patent, is intact, with fluids infusing freely, with good blood return. 01/23 00:37 XRAY Chest (1 view) In Process Unspecified. EDMS 00:37 Knee Right 3 View XRAY In Process Unspecified. EDMS 00:59 Paulie Gallo MD is Hospitalizing Provider. sandhya 01:26 EKG done, by ED staff, reviewed by Darshan Lizama MD. dd2 01:35 US Extremity Venous W Compression Olvin In Process Unspecified. EDMS 02:14 Second set of blood cultures drawn by me. dd2 06:[address] Rojo the hospitalist security operations center operator for [facility] with Dr. Lizama for eb patient transfer consultation. 06:32 per Joy from the [facility] they are accepting the patient in eb transfer, they are just waiting for a bed to get cleaned and will have to call us back to give administrative approval. 07:44 the [facility] transfer center called to inform us that after speaking with her AOC they will eb have to decline the patient in transfer- the orthopedic security operations center operator feels this patient could be followed up out patient and they do not have a knee specialist security operations center operator this weekend. 07:46 \T\0240 transfer was initiated by Kriss with Paul from the [facility] transfer center/ \T\0517 eb transfer initiated by Kriss with Joy from the [facility]. 08:07 administrative approval given by Shoaib Rivero/ patient has been accepted to [facility] bed 739/ Dr. Wyatt Stratton has accepted the patient in transfer/ report to be called to [phone]. 09:02 Patient transferred, IV remains in place. hb Administered Medications: 01/22 23:50 Drug: NS 0.9% IV 1000 ml IV at 125 ml/hr continuous Route: IV; Rate: 125 ml/hr; Site: dd2 right antecubital; 01/23 00:05 Follow up: Response: No adverse reaction dd2 02:12 Drug: Famotidine IVP 20 mg IVP once; dilute with 10 mL 0.9% NaCl; give over 2 minutes dd2 Route: IVP; Site: right antecubital; 02:27 Follow up: Response: No adverse reaction dd2 02:13 Drug: ceFAZolin IVPB 1 grams IVPB once Route: IVPB; Site: right antecubital; dd2 02:28 Follow up: Response: No adverse reaction dd2 02:43 Follow up: Response: No adverse reaction; IV Status: Completed infusion; IV Intake: [id number] 02:25 Drug: vancoMYCIN IVPB 1 grams IVPB once over 2 hrs Route: IVPB; Infused Over: 2 hrs; dd2 Site: right antecubital; 02:40 Follow up: Response: No adverse reaction dd2 04:32 Follow up: Response: No adverse reaction; IV Status: Completed infusion; IV Intake: dd2 250ml Medication: 01/22 23:30 VIS not applicable for this client. dd2 Intake: 01/23 02:43 IV: 50ml; Total: 50ml. dd2 04:32 IV: 250ml; Total: 300ml. dd2 Outcome: 01:01 Decision to Hospitalize by Provider. sandhya 02:36 ER care complete, transfer ordered by . [facility] 08:58 [facility] by [facility], 08:58 Condition: stable 08:58 Instructed on the need for transfer, Demonstrated understanding of instructions, 09:03 Patient left the ED. Signatures: Dispatcher [employer] EDDarshan López MD MD cha Baxter, Heather, RN RN Dianelys Dunbar Rebecca 1 MADAI COSTA RN RN dd2 Corrections: (The following items were deleted from the chart) 07:49 07:46 \T\0240 transfer was initiated by Kriss Miller from the [facility] transfer center eb
--- NOTE | 2024-01-24 01:02 | EDPHYS ---
Physician Documentation [facility] Name: Christopher Le Age: 73 yrs Sex: Male : 1950 Arrival Date: 01/23/2024 Time: 22:49 Bed 5 Private MD: ED Physician Darshan Lizama HPI: 01/22 23:54 This 73 yrs old Male presents to ER via EMS with complaints of right lower sandhya extremity red, not feeling well. 23:54 The patient presents with pain, that is acute. The complaints affect the lateral aspect sandhya of right calf, medial aspect of right calf and right berrios. Context: The problem was sustained at an unknown site. Onset: The symptoms/episode began/occurred 1 day(s) ago. Modifying factors: The symptoms are alleviated by nothing. the symptoms are aggravated by movement. Associated signs and symptoms: Pertinent positives: nausea, vomiting. Treatment prior to arrival includes: no previous treatment. The patient has not experienced similar symptoms in the past. Historical: - Allergies: 23:09 No Known Allergies; dd2 - PMHx: 23:09 Chronic pain; Hypertensive disorder; Restless Legs Syndrome (Unknown); dd2 - PSHx: 23:09 Right knee replacement; dd2 - Immunization history:: Adult Immunizations up to date. - Infectious Disease History:: Denies. - Social history:: Smoking status: Patient denies any tobacco usage or history of. - Family history:: not pertinent. ROS: 23:54 Constitutional: Negative for fever, chills, and weight loss, Eyes: Negative for injury, sandhya pain, redness, and discharge, ENT: Negative for injury, pain, and discharge, Neck: Negative for injury, pain, and swelling, Cardiovascular: Negative for chest pain, palpitations, and edema, Respiratory: Negative for shortness of breath, cough, wheezing, and pleuritic chest pain, Back: Negative for injury and pain, : Negative for injury, bleeding, discharge, and swelling, Neuro: Negative for headache, weakness, numbness, tingling, and seizure, Psych: Negative for depression, anxiety, suicide ideation, homicidal ideation, and hallucinations, Allergy/Immunology: Negative for hives, rash, and allergies, Endocrine: Negative for neck swelling, polydipsia, polyuria, polyphagia, and marked weight changes, 23:54 Abdomen/GI: Positive for nausea, vomiting, 23:54 MS/extremity: Positive for erythema, pain, of the lateral aspect of right calf and right berrios, Exam: 23:54 Constitutional: This is a well developed, well nourished patient who is awake, alert, sandhya and in no acute distress. Head/Face: Normocephalic, atraumatic. Eyes: Pupils equal round and reactive to light, extra-ocular motions intact. Lids and lashes normal. Conjunctiva and sclera are non-icteric and not injected. Cornea within normal limits. Periorbital areas with no swelling, redness, or edema. ENT: Nares patent. No nasal discharge, no septal abnormalities noted. Tympanic membranes are normal and external auditory canals are clear. Oropharynx with no redness, swelling, or masses, exudates, or evidence of obstruction, uvula midline. Mucous membranes moist. Neck: Trachea midline, no thyromegaly or masses palpated, and no cervical lymphadenopathy. Supple, full range of motion without nuchal rigidity, or vertebral point tenderness. No Meningismus. Chest/axilla: Normal chest wall appearance and motion. Nontender with no deformity. No lesions are appreciated. Cardiovascular: Regular rate and rhythm with a normal S1 and S2. No gallops, murmurs, or rubs. Normal PMI, no JVD. No pulse deficits. Respiratory: Lungs have equal breath sounds bilaterally, clear to auscultation and percussion. No rales, rhonchi or wheezes noted. No increased work of breathing, no retractions or nasal flaring. Abdomen/GI: Soft, non-tender, with normal bowel sounds. No distension or tympany. No guarding or rebound. No evidence of tenderness throughout. Back: No spinal tenderness. No costovertebral tenderness. Full range of motion. Male : Normal genitalia with no discharge or lesions. Neuro: Awake and alert, GCS 15, oriented to person, place, time, and situation. Cranial nerves II-XII grossly intact. Motor strength 5/5 in all extremities. Sensory grossly intact. Cerebellar exam normal. Normal gait. Psych: Awake, alert, with orientation to person, place and time. Behavior, mood, and affect are within normal limits. 23:54 Skin: cellulitis, patchy, on the lateral aspect of right calf, medial aspect of right calf and right berrios, knee not red and swollen, lower leg red , swollen, mildly tender, 01/23 00:01 ECG was reviewed by the Attending Physician. [facility] Vital Signs: 01/22 22:59 BP 128 / 68; Pulse 58; Resp 16; Temp 97.8(O); Pulse Ox 99% on R/A; Weight 73.48 kg; dd2 Pain 0/10; 23:09 BP 114 / 58; Pulse 57; Resp 16; Temp 98.1(O); Pulse Ox 100% ; Pain 0/10; dd2 01/23 01:26 BP 129 / 60; Pulse 60; Resp 15; Pulse Ox 97% on R/A; Pain 0/10; dd2 02:23 BP 133 / 53; Pulse 61; Resp 16; Pulse Ox 100% ; Pain 0/10; dd2 03:30 BP 119 / 62; Pulse 54; Resp 16; Pulse Ox 100% ; dd2 04:30 BP 134 / 66; Pulse 59; Resp 16; Pulse Ox 100% ; dd2 06:30 BP 149 / 73; Pulse 82; Resp 16; Pulse Ox 100% ; dd2 07:50 BP 124 / 54; Pulse 70; Resp 16; Pulse Ox 99% on R/A; hb 09:00 BP 126 / 66; Pulse 72; Resp 15; Pulse Ox 99% on R/A; hb 01/22 22:59 Pain Scale: Adult dd2 23:09 Pain Scale: Adult dd2 01/23 01:26 Pain Scale: Adult dd2 02:23 Pain Scale: Adult dd2 [place] Coma Score: 01/22 23:30 Eye Response: spontaneous(4). Motor Response: obeys commands(6). Verbal Response: dd2 oriented(5). Total: 15. 01/23 09:00 Eye Response: spontaneous(4). Motor Response: obeys commands(6). Verbal Response: hb oriented(5). Total: 15. MDM: 01/22 23:13 Medical Screening Exam initiated [facility] 23:58 Differential diagnosis: closed fracture, contusion, abrasion, tendonitis. Data [facility] reviewed: vital signs, nurses notes, EMS record, lab test result(s), EKG, radiologic studies, doppler, plain films. Consideration of Admission/Observation Escalation of care including admission/observation considered. I considered the following discharge prescriptions or medication management in the emergency department Medications were administered in the Emergency Department. See MAR. Independent interpretation of the following test(s) in the Emergency Department EKG: See my EKG interpretation above. Test considered but Not performed: MRI: no mri. Historians other than the Patient: EMS: ems well informed,recent knee replacement, asa daily. Care significantly affected by the following chronic conditions: Hypertension, chronic pain, rls. Counseling: I had a detailed discussion with the patient and/or guardian regarding the historical points, exam findings, and any diagnostic results supporting the discharge/admit diagnosis, lab results, radiology results, the need for further work-up and treatment in the hospital. 01/23 05:32 ED course: [facility] DOCTOR COVERING COVERING FOR DR CHANDLER, DID NOT WANT TO TAKE THE [facility] PATIENT, FELT THE PATIENT COULD FOLLOW UP ON FRIDAY OR FRIDAY. 01/22 23:13 Order name: Basic Metabolic Panel; Complete Time: 00:55 [facility] 01/22 23:13 Order name: CBC with Diff; Complete Time: 05:40 [facility] 01/22 23:13 Order name: LFT's; Complete Time: 00:55 [facility] 01/22 23:13 Order name: Magnesium; Complete Time: 00:55 [facility] 01/22 23:13 Order name: NT PRO-BNP; Complete Time: 00:55 [facility] 01/22 23:13 Order name: PT-INR; Complete Time: 00:45 [facility] 01/22 23:13 Order name: Troponin HS; Complete Time: 00:55 [facility] 01/22 23:13 Order name: Lactate w/ 2H reflex if indic.; Complete Time: 00:45 [facility] 01/22 23:13 Order name: Blood Culture Adult (2) [facility] 01/22 23:13 Order name: SARS RAPID; Complete Time: 00:45 [facility] 01/22 23:13 Order name: Flu; Complete Time: 00:45 [facility] 01/22 23:13 Order name: Lipase; Complete Time: 00:55 [facility] 01/23 03:47 Order name: CBC Smear Scan; Complete Time: 05:40 [facility] 01/22 23:13 Order name: XRAY Chest (1 view) [facility] 01/22 23:13 Order name: Knee Right 3 View XRAY [facility] 01/22 23:53 Order name: US Extremity Venous W Compression Olvin [facility] 01/22 23:13 Order name: EKG; Complete Time: 23:14 [facility] 01/22 23:13 Order name: Cardiac monitoring; Complete Time: 23:50 [facility] 01/22 23:13 Order name: EKG - Nurse/Tech; Complete Time: 01:26 [facility] 01/22 23:13 Order name: IV Saline Lock; Complete Time: 23:50 [facility] 01/22 23:13 Order name: Labs collected and sent; Complete Time: 23:50 [facility] 01/22 23:13 Order name: O2 Per Protocol; Complete Time: 23:50 [facility] 01/22 23:13 Order name: O2 Sat Monitoring; Complete Time: 23:50 [facility] EC:01 Rate is 61 beats/min. Rhythm is regular. QRS [place] is Normal. [place] interval is normal. QRS sandhya interval is normal. QT interval is normal. No Q waves. T waves are Normal. No ST changes noted. Clinical impression: NSR w/ Non-specific ST/T Changes and No evidence of ischemia. Interpreted by me. Reviewed by me. Administered Medications: 01/22 23:50 Drug: NS 0.9% IV 1000 ml IV at 125 ml/hr continuous Route: IV; Rate: 125 ml/hr; Site: dd2 right antecubital; 01/23 00:05 Follow up: Response: No adverse reaction dd2 02:12 Drug: Famotidine IVP 20 mg IVP once; dilute with 10 mL 0.9% NaCl; give over 2 minutes dd2 Route: IVP; Site: right antecubital; 02:27 Follow up: Response: No adverse reaction dd2 02:13 Drug: ceFAZolin IVPB 1 grams IVPB once Route: IVPB; Site: right antecubital; dd2 02:28 Follow up: Response: No adverse reaction dd2 02:43 Follow up: Response: No adverse reaction; IV Status: Completed infusion; IV Intake: [id number] 02:25 Drug: vancoMYCIN IVPB 1 grams IVPB once over 2 hrs Route: IVPB; Infused Over: 2 hrs; dd2 Site: right antecubital; 02:40 Follow up: Response: No adverse reaction dd2 04:32 Follow up: Response: No adverse reaction; IV Status: Completed infusion; IV Intake: dd2 250ml Disposition Summary: 01/24/24 02:36 Transfer Ordered Notes: Transfer Location: [facility] sandhya Reason: Higher level of care sandhya Condition: Stable(01/24/24 02:36) sandhya Problem: new(01/24/24 02:36) sandhya Symptoms: are unchanged(01/24/24 02:36) sandhya Accepting Physician: LOUISE NIETO(01/24/24 09:03) hb Diagnosis - Effusion, right knee sandhya - Cellulitis and acute lymphangitis of other parts of limb - RIGHT LOWER sandhya EXTREMITY(01/24/24 02:36) - Nausea with vomiting, unspecified sandhya - SARS-associated coronavirus as the cause of diseases classified elsewhere(01/24/24 sandhya 02:36) - Anemia, unspecified(01/24/24 02:43) sandhya Forms: - Medication Reconciliation Form sandhya - SBAR form sandhya Signatures: Dispatcher [employer] EDMS Darshan Lizama MD MD cha Baxter, Heather, RN RN hb DAVIS, DIANA, RN RN dd2 Corrections: (The following items were deleted from the chart) 01/22 23:14 23:13 BASIC METABOLIC PANEL+C.LAB.BRZ ordered. EDMS EDMS 23:14 23:13 CBC+H.LAB.BRZ ordered. EDMS EDMS 23:14 23:13 HEPATIC FUNCTION+C.LAB.BRZ ordered. EDMS EDMS 23:14 23:13 MAGNESIUM+C.LAB.BRZ ordered. EDMS EDMS 23:14 23:13 PROBNP+C.LAB.BRZ ordered. EDMS EDMS 23:14 23:13 PROTIME (+INR)+COAG.LAB.BRZ ordered. EDMS EDMS 23:14 23:13 Troponin High Sensitivity+C.LAB.BRZ ordered. EDMS EDMS 23:14 23:13 LACTATE+C.LAB.BRZ ordered. EDMS EDMS 23:14 23:13 BLOOD CULTURE*+BA.LAB.BRZ ordered. EDMS EDMS 23:14 23:13 Urinalysis+U.LAB.BRZ ordered. EDMS EDMS 23:14 23:13 SARS-COV-2 Antigen Rapid+I.LAB.BRZ ordered. EDMS EDMS 23:14 23:13 Influenza Screen (A \T\ B)+BA.LAB.BRZ ordered. EDMS EDMS 23:14 23:13 LIPASE+C.LAB.BRZ ordered. EDMS EDMS 01/23 02:25 01:01 Observation [facility] 02:25 01:01 Gallo, Mohammad [facility] 01:01 Telemetry/MedSurg (observation) [facility] 01:01 Stable [facility] 01:01 new [facility] 01:01 have improved [facility] 01:01 Standard [facility] 01:01 [facility] 01:01 Edema, unspecified [facility] : 01:01 Vomiting [facility] 02: 01:01 Pain in right lower leg [facility] 01:01 Cellulitis and acute lymphangitis of other parts of limb - right lower extremity [facility] 01:01 Anemia, unspecified [facility] 01:01 SARS-associated coronavirus as the cause of diseases classified elsewhere [facility] 02 02:36 TO [facility] 09:03 02:43 TO [facility]
[2024-01-24] MEDS ORDERED: VANCOMYCIN 1 GM/VIAL ONE (01:46)
[2024-01-24] MEDS ORDERED: NA CHLORIDE 0.9% 0 ML ONE (01:47)
[2024-01-24] MEDS ORDERED: NA CHLORIDE 0.9% 250 ML ONE (01:47)
[2024-01-24] MEDS ORDERED: CEFAZOLIN SODIUM 1 GM/VIAL ONE (01:47)
[2024-01-24] MEDS ORDERED: FAMOTIDINE 20 MG/2 ML VIAL IV ONE (01:47)
[2024-01-24] MEDS ORDERED: NA CHLORIDE 0.9% 50 ML ONE (02:11)
--- NOTE | 2024-01-24 02:32 | RAD REPORT ---
EXAM: XR Right Knee, 3 Views CLINICAL HISTORY: Pain, swelling. TECHNIQUE: Three views of the right knee. COMPARISON: No relevant prior studies available. 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 No periprosthetic lucency. No a cute fracture. Suggestion for a small joint effusion. No dislocation. Soft tissues: Soft tissue swelling most pronounced anterolaterally. IMPRESSION: Soft tissue swelling most pronounced anterolaterally. Suggestion for a small joint effusion. No acute fracture. Electronically signed by: Gypsy Reece MD 01/24/2024 01:27 AM CDT Due to temporary technical issues with the PACS/[employer] reporting system, reports are being noah d by the in-house radiologist without review as a courtesy to ensure prompt reporting the interpreting radiologist is fully responsible for the content of the report. Transcribed Date/Time: 01/24/2024 2:31 AM
--- NOTE | 2024-01-24 02:32 | RAD REPORT ---
TIME OF STUDY: 01/23/2024 11:13 PM CDT REASON FOR EXAM: COUGH COMPARISON: None. FINDINGS: AP view of the chest was obtained, chest 1 view. Lungs: Normal lung volume. No mass, or consolidation. Normal pulmonary vascularity.. No significant bronchial wall thickening is noted. Pleura: No pneumothorax. There is no pleural effusion. Heart and Mediastinum: Normal cardiomediastinal silhouette and great vessels.. Bones: No acute bony abnormality.. IMPRESSION: 1. No acute cardiopulmonary process. Electronically signed by: Alfred Wu MD 01/24/2024 01:14 AM CDT RP Due to temporary technical issues with the PACS/[employer] reporting system, reports are being noah d by the in-house radiologist without review as a courtesy to ensure prompt reporting the interpreting radiologist is fully responsible for the content of the report. Transcribed Date/Time: 01/24/2024 2:31 AM
--- NOTE | 2024-01-24 02:38 | RAD REPORT ---
EXAM: US Duplex Bilateral Lower Extremities Veins CLINICAL HISTORY: The patient is 73 years old and is Male; Pain;Swelling TECHNIQUE: Real-time duplex ultrasound scan of the bilateral lower extremity veins integrating B-mode two-dime nsional vascular structure, Doppler spectral analysis, color flow Doppler imaging and compression. COMPARISON: No relevant prior studies available. FINDINGS: RIGHT DEEP VEINS: Unremarkable. No DVT in the visualized common femoral, femoral, proximal deep femoral, popliteal, posterior tibial veins. The veins demonstrate normal color flow, are normally compressible, with normal phasic flow and/or augmentation response. RIGHT SUPERFICIAL VEINS: Unremarkable. No thrombus in the visualized right great saphenous vein . LEFT DEEP VEINS: Unremarkable. No DVT in the visualized common femoral, femoral, proximal deep femoral, popliteal, posterior tibial veins. The veins demonstrate normal color flow, are normally compressible, with normal phasic flow and/or augmentation response. LEFT SUPERFICIAL VEINS: Unremarkable. No thrombus in the visualized left great saphenous vein. SOFT TISSUES: No acute findings. A left popliteal cyst measuring grossly 2.5 cm is present. IMPRESSION: Normal bilateral lower extremity duplex venous ultrasound. Electronically signed by: Stephanie Donald MD 01/24/2024 02:33 AM CDT Due to temporary technical issues with the PACS/[employer] reporting system, reports are being sign ed by the in-house radiologist without review as a courtesy to ensure prompt reporting the interpreting rad iologist is fully responsible for the content of the report. Transcribed Date/Time: 01/24/2024 2:38 AM
[2024-01-24 03:47] LABS: Blood Morphology Comment NOT SEEN (NOT SEEN); Platelet Estimate ADEQ; White Blood Cell Scan OK (OK)
[2024-01-24 09:10] VITALS: TEMP 98.1
[2024-01-24 09:17] VITALS: O2SAT 99
[2024-01-24 09:18] VITALS: BP 126/66
--- NOTE | 2024-01-26 12:17 | EKG ---
Test Date: 2024-01-23 Test Time: 23:59:18 [employer] Mechanic: OPAL MEASUREMENT RESULTS: Intervals: Rate: 61 UT: 128 QRSD: 100 QT: 424 QTc: 426 [place]: P: 68 UT: 128 QRS: 75 T: 65 INTERPRETIVE STATEMENTS: Normal sinus rhythm Nonspecific ST abnormality Abnormal ECG Compared to ECG 06/27/2023 21:55:20 ST (T wave) deviation now present Electronically Signed On 01-26-24 12:15:44 [employer] by Kervin Ayala
== END 2024-01-24 09:03 | disposition short-term general hospital (02) ==
LOC: ER 22:49
DX: M25.461 Effusion, right knee (principal); L03.115 Cellulitis of right lower limb; L03.125 Acute lymphangitis of right lower limb; U07.1 COVID-19; D64.9 Anemia, unspecified; R11.2 Nausea with vomiting, unspecified; I10 Essential (primary) hypertension; Z96.651 Presence of right artificial knee joint
CPT/HCPCS: 96365; 93005; 87040 ×2; 85025; 80048; 36415; 83735; 85610; 80076; 83605; 84484; 83690; 83880; 87804 ×2; 71045; 73562; 93970; 96375; 99285; 87811; J7050; J7030; J0690